=== PATIENT | male | born 1980 | race Caucasian/White ===

== ENCOUNTER 2021-04-10 18:13 | Inpatient (IN) ==
[2021-04-10] MEDS ORDERED: MULTI-VITAMIN INFUSION 10 ML, THIAMINE HCL 100 MG, FOLIC ACID 1 MG in SODIUM CHLORIDE 0... IV ONE (18:23)
[2021-04-10] MEDS ORDERED: SODIUM CHLORIDE 0.9% 500 ML IV SCH (18:30)
[2021-04-10 18:57] LABS: Basophils # (auto) 0.02 K/uL (0-0.2); Basophils % (auto) 0.2 %; Eosinophils # (auto) 0.03 K/uL (0-0.5); Eosinophils % (auto) 0.4 %; Hematocrit (blood only) 43.5 % (42-52); Hemoglobin 14.9 g/dL (14.0-18.0); Immature Granulocytes # (auto) 0.01 K/uL (0.00-0.02); Immature Granulocytes % (auto) 0.1 %; Lymphocytes # (auto) 2.74 K/uL (1.2-3.4); Lymphocytes % (auto) 33.7 %; Mean Corpuscular Hemoglobin 31.7 pg (25-34); Mean Corpuscular Hgb Conc 34.3 g/dL (32-36); Mean Corpuscular Volume 92.6 fL (80-100); Mean Platelet Volume 9.3 fL (7.4-10.4); Monocytes # (auto) 0.59 K/uL (0.11-0.59); Monocytes % (auto) 7.3 %; Neutrophils # (auto) 4.74 K/uL (1.4-6.5); Neutrophils % (auto) 58.3 %; Platelet Count 251 K/uL (130-400); RDW Coefficient of Variation 13.7 % (11.5-14.5); RDW Standard Deviation 46.5 fL (36.4-46.3); White Blood Count 8.13 K/uL (4.8-10.8)
--- NOTE | 2021-04-10 19:03 | Emergency Department Note ---
Impression & Plan Alcohol withdrawal, Alcohol abuse, Tachycardia, Anxiety ED Provider Note NAME: KEVIN DUVALL AGE: 40 SEX: M : 1980 ARRIVES VIA: Walk-In INFORMANT: [Patient] ED PROVIDER(S): [Dedrick Grover MD] CHIEF COMPLAINT: Alcohol abuse HISTORY OF PRESENT ILLNESS: The patient is a 40-year-old male who presents to the ED with concerns for alcohol withdrawal. The patient has a history 5 years ago of alcohol and opiate withdrawal. He had a seizure. He has been clean of both for the last 5 years but a week ago, began drinking alcohol again. He is using alcohol to cope with his anxiety. He drinks at least a pint of hard liquor a day. He currently feels a bit intoxicated. He presents here because he wants to come off of alcohol and he is concerned he may withdrawal. The patient is not homicidal or suicidal. He does not want to stay on the mental health [facility]. The patient states that he is otherwise healthy. No heart or lung disease. He does take Suboxone regularly as prescribed by his doctors office. He also has a card for medical marijuana. He denies any illicit narcotic use currently. REVIEW OF SYSTEMS: See HPI for pertinent positives and negatives. A total of ten systems were reviewed and were otherwise negative. PMHx/PSHx: See Below SOCIAL HISTORY: See Below. PHYSICAL EXAM: GENERAL: Patient is in mild distress. HEENT: No acute trauma, normocephalic atraumatic, mucous membranes moist, no nasal congestion, no scleral icterus. NECK: No stridor, no adenopathy, no meningismus, trachea is midline. LUNGS: Clear to auscultation bilaterally, no wheeze, no rhonchi, breath sounds equal. HEART: Tachycardic, regular rhythm, no murmurs. ABDOMEN: Soft, nontender, bowel sounds positive, no hernias, no peritonitis. EXTREMITIES: No cyanosis or edema, full range of motion of all the joints without pain or difficulty, no signs for acute trauma. NEUROLOGIC: Oriented x 3, no acute motor or sensory deficits, no focal weakness. Extremity tremor noted. SKIN: No rash, no jaundice, no diaphoresis. DIFFERENTIAL DIAGNOSIS: Alcohol abuse, alcohol withdrawal, anxiety, depression, electrolyte imbalance, anemia, suicidality, dehydration, among others. EMERGENCY DEPARTMENT COURSE/PROCEDURES: Critical Care Note: I have personally spent 39 minutes of critical care time in the direct management of this patient. This includes bedside care, interpretation of diagnostic studies, and testing, discussion with consultants, patient, and family members, and other required patient management activities. This 39 minutes is in excess of all separately billable procedures. MEDICAL DECISION MAKING: There is no leukocytosis or worrisome anemia. There is a normal platelet count. No renal failure or significant electrolyte abnormality in need of emergent correction. There are some elevated liver enzymes consistent with his alcohol abuse. The patient appears to be in a euthyroid state. Urinalysis does not show infection. Aspirin, Tylenol levels were undetectable. Alcohol level was high at 289. Urine tox is pending. Covid testing returned negative. The patient presents tachycardic and a bit agitated. He appeared to be in early alcohol withdrawal. While he was here, he became more agitated and more tremulous. The patient was given IV Ativan and oral Librium. He was given IV saline. The patient received IV saline with multivitamins, thiamine and folate. I do think the patient is in need of a hospital stay. He has a history of seizure secondary to alcohol withdrawal. He is withdrawing now and I do think will do poorly if left to go home. He has consented to a hospital stay. I spoke with the patient and bilingual patient support caseworker. The on-call hospitalist was consulted. Of note, the patient is not homicidal or suicidal. I do not think he needs an emergent psychiatric consult. Past Med/Surg History Medical History (Updated 04/10/21 @ 21:42 by Dedrick Grover MD) Alcohol abuse Opiate addiction Social History Smoking Status: Never smoker Feels Safe at Home: Yes Results & Data (ED) Vital Signs Vital Signs - 24 hr 04/10/21 18:18 04/10/21 20:14 Temperature 36.7 C Temperature Source Temporal Artery Scan Pulse Rate 120 H Pulse Rate [Finger] 108 H Pulse Rhythm [Finger] Regular Pulse Strength [Finger] Normal Respiratory Rate 20 20 Respiratory Effort / Characteristics Non-Labored Respiratory Depth Normal Blood Pressure 164/105 H Blood Pressure [Left Arm] 153/89 H Blood Pressure Mean 124 Blood Pressure Mean [Left Arm] 110 Pulse Oximetry 93 98 Oxygen Delivery Method Room Air Room Air Sepsis Recent Fever Within 48 Hours No Sepsis New/Unexplained Change in Mental Status N/A Sepsis Action Taken by Nursing No Action Required Home Medications Current Medication List: was personally reviewed by me Laboratory Data Attestation: I reviewed the patient's lab results. Result diagrams: 04/10/21 18:46 04/10/21 18:46 Lab Results 04/10/21 04/10/21 04/10/21 Range/Units 18:16 18:40 18:46 WBC 8.13 (4.8-10.8) K/uL RBC 4.70 (4.7-6.1) M/uL Hgb 14.9 (14.0-18.0) g/dL Hct 43.5 (42-52) % MCV 92.6 (80-100) fL MCH 31.7 (25-34) pg MCHC 34.3 (32-36) g/dL RDW Std Deviation 46.5 H (36.4-46.3) fL RDW Coeff of Chay 13.7 (11.5-14.5) % Plt Count 251 (130-400) K/uL MPV 9.3 (7.4-10.4) fL Immature Gran % (Auto) 0.1 % Neut % (Auto) 58.3 % Lymph % (Auto) 33.7 % [place] % (Auto) 7.3 % Eos % (Auto) 0.4 % Baso % (Auto) 0.2 % Neut # (Auto) 4.74 (1.4-6.5) K/uL Lymph # (Auto) 2.74 (1.2-3.4) K/uL [place] # (Auto) 0.59 (0.11-0.59) K/uL Eos # (Auto) 0.03 (0-0.5) K/uL Baso # (Auto) 0.02 (0-0.2) K/uL Immature Gran # (Auto) 0.01 (0.00-0.02) K/uL Sodium (136-145) mmol/L Potassium (3.5-5.1) mmol/L Chloride (98-107) mmol/L Carbon Dioxide (21-32) mmol/L Anion Gap (3-11) BUN (6-23) mg/dl Creatinine (0.6-1.4) mg/dl Est Cr Clr Drug Dosing ml/min Est GFR ( Amer) ml/min Est GFR (Non-Af Amer) ml/min BUN/Creatinine Ratio (10-20) Glucose (70-99(Fasting)) mg/dl Calcium (8.5-10.1) mg/dl Magnesium (1.7-2.4) mg/dl Total Bilirubin (0.2-1.0) mg/dl AST (13-39) U/L ALT (7-52) U/L Alkaline Phosphatase (34-104) U/L Total Protein (6.0-8.3) gm/dl Albumin (3.4-5.0) gm/dl Globulin (2.5-4.0) gm/dl Albumin/Globulin Ratio (0.9-2) TSH 3.489 (0.300-4.500) uIu/ml Urine Color Urine Appearance (Clear) Urine pH (4.5-7.5) Ur Specific [place] (1.000-1.030) Urine Protein (Negative) Urine Glucose (UA) (Negative) Urine Ketones (Negative) Urine Blood (Negative) Urine Nitrite (Negative) Urine Bilirubin (Negative) Urine Urobilinogen (Negative) Ur Leukocyte Esterase (Negative) Salicylates < 3.0 L (3.0-30) mg/dl Acetaminophen < 3 L (10-30) ug/ml Ethyl Alcohol mg/dL (<10.0) mg/dl SARS-CoV-2, RNA, NAAT (NEGATIVE) 04/10/21 04/10/21 04/10/21 Range/Units 18:46 18:46 19:15 WBC (4.8-10.8) K/uL RBC (4.7-6.1) M/uL Hgb (14.0-18.0) g/dL Hct (42-52) % MCV (80-100) fL MCH (25-34) pg MCHC (32-36) g/dL RDW Std Deviation (36.4-46.3) fL RDW Coeff of Chay (11.5-14.5) % Plt Count (130-400) K/uL MPV (7.4-10.4) fL Immature Gran % (Auto) % Neut % (Auto) % Lymph % (Auto) % [place] % (Auto) % Eos % (Auto) % Baso % (Auto) % Neut # (Auto) (1.4-6.5) K/uL Lymph # (Auto) (1.2-3.4) K/uL [place] # (Auto) (0.11-0.59) K/uL Eos # (Auto) (0-0.5) K/uL Baso # (Auto) (0-0.2) K/uL Immature Gran # (Auto) (0.00-0.02) K/uL Sodium 140 (136-145) mmol/L Potassium 3.5 (3.5-5.1) mmol/L Chloride 100 (98-107) mmol/L Carbon Dioxide 25 (21-32) mmol/L Anion Gap 15 H (3-11) BUN 14 (6-23) mg/dl Creatinine 0.71 (0.6-1.4) mg/dl Est Cr Clr Drug Dosing 142.4 ml/min Est GFR ( Amer) 136.0 ml/min Est GFR (Non-Af Amer) 117.4 ml/min BUN/Creatinine Ratio 19.7 (10-20) Glucose 115 H (70-99(Fasting)) mg/dl Calcium 9.1 (8.5-10.1) mg/dl Magnesium 2.1 (1.7-2.4) mg/dl Total Bilirubin 0.4 (0.2-1.0) mg/dl AST 81 H (13-39) U/L ALT 65 H (7-52) U/L Alkaline Phosphatase 74 (34-104) U/L Total Protein 8.1 (6.0-8.3) gm/dl Albumin 4.9 (3.4-5.0) gm/dl Globulin 3.2 (2.5-4.0) gm/dl Albumin/Globulin Ratio 1.5 (0.9-2) TSH (0.300-4.500) uIu/ml Urine Color Urine Appearance (Clear) Urine pH (4.5-7.5) Ur Specific [place] (1.000-1.030) Urine Protein (Negative) Urine Glucose (UA) (Negative) Urine Ketones (Negative) Urine Blood (Negative) Urine Nitrite (Negative) Urine Bilirubin (Negative) Urine Urobilinogen (Negative) Ur Leukocyte Esterase (Negative) Salicylates (3.0-30) mg/dl Acetaminophen (10-30) ug/ml Ethyl Alcohol mg/dL 289.3 H (<10.0) mg/dl SARS-CoV-2, RNA, NAAT NEGATIVE (NEGATIVE) 04/10/21 Range/Units 20:45 WBC (4.8-10.8) K/uL RBC (4.7-6.1) M/uL Hgb (14.0-18.0) g/dL Hct (42-52) % MCV (80-100) fL MCH (25-34) pg MCHC (32-36) g/dL RDW Std Deviation (36.4-46.3) fL RDW Coeff of Chay (11.5-14.5) % Plt Count (130-400) K/uL MPV (7.4-10.4) fL Immature Gran % (Auto) % Neut % (Auto) % Lymph % (Auto) % [place] % (Auto) % Eos % (Auto) % Baso % (Auto) % Neut # (Auto) (1.4-6.5) K/uL Lymph # (Auto) (1.2-3.4) K/uL [place] # (Auto) (0.11-0.59) K/uL Eos # (Auto) (0-0.5) K/uL Baso # (Auto) (0-0.2) K/uL Immature Gran # (Auto) (0.00-0.02) K/uL Sodium (136-145) mmol/L Potassium (3.5-5.1) mmol/L Chloride (98-107) mmol/L Carbon Dioxide (21-32) mmol/L Anion Gap (3-11) BUN (6-23) mg/dl Creatinine (0.6-1.4) mg/dl Est Cr Clr Drug Dosing ml/min Est GFR ( Amer) ml/min Est GFR (Non-Af Amer) ml/min BUN/Creatinine Ratio (10-20) Glucose (70-99(Fasting)) mg/dl Calcium (8.5-10.1) mg/dl Magnesium (1.7-2.4) mg/dl Total Bilirubin (0.2-1.0) mg/dl AST (13-39) U/L ALT (7-52) U/L Alkaline Phosphatase (34-104) U/L Total Protein (6.0-8.3) gm/dl Albumin (3.4-5.0) gm/dl Globulin (2.5-4.0) gm/dl Albumin/Globulin Ratio (0.9-2) TSH (0.300-4.500) uIu/ml Urine Color Yellow Urine Appearance Clear (Clear) Urine pH 7.0 (4.5-7.5) Ur Specific [place] 1.009 (1.000-1.030) Urine Protein Negative (Negative) Urine Glucose (UA) Negative (Negative) Urine Ketones Negative (Negative) Urine Blood Negative (Negative) Urine Nitrite Negative (Negative) Urine Bilirubin Negative (Negative) Urine Urobilinogen Negative (Negative) Ur Leukocyte Esterase Negative (Negative) Salicylates (3.0-30) mg/dl Acetaminophen (10-30) ug/ml Ethyl Alcohol mg/dL (<10.0) mg/dl SARS-CoV-2, RNA, NAAT (NEGATIVE) Administered Medications Discontinued Medications Chlordiazepoxide HCl (Chlordiazepoxide Hcl 25 Mg Cap) 25 mg PO NOW ONE Stop: 04/10/21 21:11 Last Admin: 04/10/21 21:21 Dose: 25 mg Documented by: [id number] Sodium Chloride (Nss) 500 mls @ 999 mls/hr IV .Q31M EDINSON Stop: 04/10/21 19:00 Last Infusion: 04/10/21 21:01 Dose: 0 mls/hr Documented by: [id number] Admin: 04/10/21 20:11 Dose: 999 mls/hr Documented by: [id number] Multivitamins 10 ml/ Thiamine HCl 100 mg/ Folic Acid 1 mg/Sodium Chloride 1,011.2 mls @ 1,011.2 mls/hr IV .Q1H ONE Stop: 04/10/21 19:22 Last Infusion: 04/10/21 20:22 Dose: 0 mls/hr Documented by: [id number] Admin: 04/10/21 19:22 Dose: 1,011.2 mls/hr Documented by: [id number] Lorazepam (Ativan) 2 mg in 4 mls @ 4 mls/min IV NOW STA Stop: 04/10/21 21:11 Last Admin: 04/10/21 21:22 Dose: 4 mls/min Documented by: [id number] Discharge Plan Visit Data Chief Complaint: Mental Health Evaluation Stated Complaint: ANXIETY, DONIS WITH DRINKING, ED Provider: Dedrick Grover Discharge Problem: Alcohol withdrawal, Alcohol abuse, Tachycardia, Anxiety Patient Disposition: Admitted As Inpatient Condition: Fair Forms Stand Alone Forms: [facility], Suicide Prevention Resources Referrals Referrals: PCP,NO [Primary Care Provider] -
[2021-04-10 19:22] LABS: Albumin Globulin Ratio 1.5 (0.9-2); Albumin Level 4.9 gm/dl (3.4-5.0); BUN Creatinine Ratio 19.7 (10-20); Bilirubin,Total 0.4 mg/dl (0.2-1.0); Calcium 9.1 mg/dl (8.5-10.1); Creatinine Clr Calc Pharmacy 142.4 ml/min; Est GFR (Non-African American) 117.4 ml/min; Globulin 3.2 gm/dl (2.5-4.0); Magnesium 2.1 mg/dl (1.7-2.4); Potassium 3.5 mmol/L (3.5-5.1); Total Protein 8.1 gm/dl (6.0-8.3)
[2021-04-10 19:37] LABS: Acetaminophen < 3 ug/ml (10-30); Salicylate < 3.0 mg/dl (3.0-30)
[2021-04-10] MEDS ORDERED: LORazepam 2 MG/4 ML VIAL IV STA ×2 (21:10→22:25)
[2021-04-10] MEDS ORDERED: chlordiazePOXIDE HCl 25 MG CAP PO ONE ×2 (21:10→22:25)
[2021-04-10 21:19] LABS: Appearance Urine Clear (Clear); Bilirubin Urine Negative (Negative); Blood Urine Negative (Negative); Color Urine Yellow; Glucose Urine UA Negative (Negative); Ketones Urine Negative (Negative); Leukocyte Esterase Urine Negative (Negative); Nitrite Urine Negative (Negative); Protein Urine Negative (Negative); Specific Gravity Urine 1.009 (1.000-1.030); Urobilinogen Urine Negative (Negative)
[2021-04-10 22:14] LABS: Amphetamines+Metham, Urine Neg (Neg); Barbiturates, Urine Neg (Neg); Benzodiazepine, Urine Neg (Neg); Cocaine, Urine Neg (Neg); MDMA (Ecstacy), Urine Neg (Neg); Methadone, Urine Neg (Neg); Opiate, Urine Neg (Neg); Phencyclidine, Urine Neg (Neg)
[2021-04-10] MEDS ORDERED: buPROPion XL 150 MG TABCR PO STA (22:25)
[2021-04-10] MEDS ORDERED: SERTRALINE HCL 100 MG TABLET PO STA (22:25)
[2021-04-10] MEDS ORDERED: chlordiazePOXIDE ALCOHOL WITHDRAWL 50MG PO STA (22:52)
[2021-04-10] MEDS ORDERED: cloNIDine HCL 0.1 MG TAB PO ONE (23:01)
[2021-04-11] MEDS ORDERED: ONDANSETRON INJ 2 MG/ML 2 ML VIAL IV PRN (01:08)
[2021-04-11] MEDS ORDERED: NITROGLYCERIN SL 0.4 MG/TAB TAB SL PRN (01:08)
[2021-04-11] MEDS ORDERED: LORazepam 2 MG/4 ML VIAL IV PRN (01:08)
[2021-04-11] MEDS ORDERED: cloNIDine HCL 0.1 MG TAB PO PRN (01:08)
[2021-04-11] MEDS ORDERED: LORazepam 3 MG/6 ML VIAL IV PRN (01:08)
[2021-04-11] MEDS ORDERED: ATIVAN IV ALCOHOL WITHDRAWL IV PRN (01:08)
[2021-04-11] MEDS: FOLIC ACID 1 MG in SYRINGE 9.8 ML IV SCH ×2 (01:59→08:41)
[2021-04-11] MEDS: THIAMINE HCL 100 MG in SYRINGE 9 ML IV SCH ×2 (02:00→08:41)
[2021-04-11] MEDS: D5W AND 1/2NSS 1,000 ML IV SCH ×2 (02:27→14:22)
[2021-04-11] MEDS: chlordiazePOXIDE HCl 25 MG CAP PO SCH ×4 (03:55→22:05)
[2021-04-11 04:57] LABS: Basophils # (auto) 0.01 K/uL (0-0.2); Basophils % (auto) 0.2 %; Eosinophils # (auto) 0.07 K/uL (0-0.5); Eosinophils % (auto) 1.6 %; Hematocrit (blood only) 36.8 % (42-52); Hemoglobin 12.2 g/dL (14.0-18.0); Immature Granulocytes # (auto) 0.01 K/uL (0.00-0.02); Immature Granulocytes % (auto) 0.2 %; Lymphocytes # (auto) 1.89 K/uL (1.2-3.4); Lymphocytes % (auto) 42.3 %; Mean Corpuscular Hgb Conc 33.2 g/dL (32-36); Mean Corpuscular Volume 93.4 fL (80-100); Mean Platelet Volume 8.9 fL (7.4-10.4); Monocytes % (auto) 11.2 %; Neutrophils # (auto) 1.99 K/uL (1.4-6.5); Neutrophils % (auto) 44.5 %; Platelet Count 150 K/uL (130-400); RDW Coefficient of Variation 13.7 % (11.5-14.5); RDW Standard Deviation 46.9 fL (36.4-46.3); Red Blood Count 3.94 M/uL (4.7-6.1); White Blood Count 4.47 K/uL (4.8-10.8)
[2021-04-11 05:38] LABS: Albumin Level 3.8 gm/dl (3.4-5.0); BUN Creatinine Ratio 19.3 (10-20); Bilirubin Direct 0.2 mg/dl (0-0.2); Bilirubin,Total 0.6 mg/dl (0.2-1.0); Calcium 7.9 mg/dl (8.5-10.1); Creatinine Clr Calc Pharmacy 177.3 ml/min; Est GFR (African American) 148.9 ml/min; Est GFR (Non-African American) 128.4 ml/min; Magnesium 1.7 mg/dl (1.7-2.4); Potassium 3.3 mmol/L (3.5-5.1)
--- NOTE | 2021-04-11 06:59 | History and Physical Report ---
DATE OF ADMISSION: 04/10/2021. CHIEF COMPLAINT: Alcohol withdrawal. HISTORY OF PRESENT ILLNESS: This is a 40-year-old male with history of alcohol and opioid abuse in the past, history of depression. The patient says he was in the rehab about 5-6 years ago. At that time, he also had withdrawal seizure , not sure from alcohol or from opioid withdrawal, and he was clean of alcohol and opioids for the last 5 years, but about a couple of weeks ago, he got anxious and stress and he started drinking again. He was drinking a pint of alcohol every 2 days and he wants to go back to his normal again, so he came to the hospital for help with withdrawal. He is shaky. Denies any other complaints. He has some headache. No blurred visions, no earache, no runny nose, no sore throat. Has some mild cough. No chest pain, no shortness of breath, no nausea. He has some heartburn. Normal bowel and bladder movements. ALLERGIES: KEFLEX. PAST MEDICAL HISTORY: As mentioned above. PAST SURGICAL HISTORY: Unknown. FAMILY HISTORY: Currently unknown. SOCIAL HISTORY: Drinks alcohol. REVIEW OF SYSTEMS: As per HPI. Rest of the review of systems is negative. PHYSICAL EXAMINATION: GENERAL: The patient is of moderate built, not in acute distress. VITAL SIGNS: Temperature 36.7, pulse 123, blood pressure 143/93, respiratory rate 22, oxygen 93% on room air. HEENT: Pupils equal, round and reactive to light. Oral mucosa moist. NECK: No JVD, no neck masses. CARDIOVASCULAR: S1 and S2 heard. Tachycardia. No murmurs. RESPIRATORY SYSTEM: Normal AP diameter. No accessory muscle use. No wheezing, no crackles. ABDOMEN: Soft, bowel sounds present, nontender, no distention. CENTRAL NERVOUS SYSTEM: Cranial nerves II-XII grossly intact, nonfocal. EXTREMITIES: No edema, no erythema. LABORATORY DATA: WBC 8.1, hemoglobin 14.9, hematocrit 43.5, platelets 251. Sodium 140, potassium 3.5, chloride 100, bicarbonate 25, BUN 14, creatinine 0.7, serum glucose 115, calcium 9.1, magnesium 2.1, total bilirubin 0.4, AST 81, ALT 65, alkaline phosphatase 74. TSH 3.4. Urinalysis is negative. Salicylate less than 3, acetaminophen less than 3, ethyl alcohol 293. Rest of the urine drug screen is negative. SARS-CoV-2 negative. ASSESSMENT AND PLAN: This is a 40-year-old male who presents with alcohol withdrawal. 1. Alcoholism, alcohol withdrawal: The patient has history of alcohol and opioid addiction in the past and was in rehabilitation. In the last 5 years, he was free of drinking alcohol, but for the last 2 weeks, he started drinking and now wants to get over the withdrawal. Received a banana bag in the Emergency Room. I will place him on IV Ativan p.r.n. and Librium protocol. Closely monitor. Clonidine p.r.n. for tachycardia. Gentle fluids.IV thiamine and folic acid. Follow the laboratories. 2. History of depression: Continue his home medications. 3. Chronic pain, history of opioid abuse: Continue Suboxone. 4. Deep venous thrombosis prophylaxis: Lovenox. DISPOSITION: Closely monitor in tele floor. Level 1 full code. Expect to discharge home and follow up with family doctor. Job ID: [id number] [facility]ENTERLeah
[2021-04-11] MEDS ORDERED: POTASSIUM CHLORIDE CRTAB 20 MEQ TABCR PO SCH (07:15)
[2021-04-11] MEDS: ENOXAPARIN INJ 40 MG/0.4 ML SYR SQ SCH (08:41)
[2021-04-11] MEDS: LORazepam 1 MG/2 ML VIAL IV PRN ×4 (08:42→20:17)
--- NOTE | 2021-04-11 13:06 | Hospitalist Progress Note ---
Date of Service April 11, 2021 Assessment & Plan (1) Alcohol withdrawal: (2) Alcohol abuse: (3) Anxiety: Plan: Patient reports he had been sober for over 5yrs and relapsed few weeks ago due to stress at home Last drink was yesterday Currently on management for alcohol withdrawwal per [facility] protocol Continue welbutrin Patient will like to see a psychiatrist as well May have adjustment issues due to major family stressor. Will need outpatient alcohol rehab resources on discharge Hypokalemic. Repleted. Monitor Has h/o opioid addiction. Continue suboxone Admission and Anticipated Discharge Date Admission Date: April 10, 2021 Subjective Patient seen and examined. Patient reports tremors, anxiety,"weird dreams" Reported vomiting earlier this morning. Denies auditory, visual or tactile hallucination. Reports he had been going through some issues at home which caused him to relapse. Currently denies nausea, abdominal pain, diarrhea Denies cough, chest pain, shortness of breath, palpitations Denies dysuria, frequency, urgency Denies fevers or chills Physical Exam Constitutional: + well hydrated; no acute distress Eyes: PERRL, conjunctivae normal, anicteric sclerae ENMT: external ear and nose normal, oropharynx normal Respiratory: normal respiratory effort, lungs clear to auscultation Cardiovascular: Rate/Rhythm: regular rate and regular rhythm S1 S2 Gastrointestinal (Abdomen): normal bowel sounds, soft, nontender, no hepatosplenomegaly Musculoskeletal: no cyanosis or clubbing, extremities motor strength 5/5 Neurologic: PERRL, EOMI, accommodation nl, no face palsy, no dysarthria Tremors in outstretched hands Psychiatric: A+Ox3, euthymic affect Results & Data Results & Data ([facility]) Vital Signs (Past 12 Hours) Vital Signs Pulse Pulse Resp BP BP Pulse Ox 04/11/21 11:06 75 18 136/88 98 04/11/21 07:06 83 16 118/70 96 04/11/21 06:00 120/83 04/11/21 05:30 117/78 04/11/21 05:00 85 20 123/78 04/11/21 04:30 88 18 109/77 04/11/21 04:00 91 H 19 118/79 04/11/21 03:56 121/78 04/11/21 03:30 123/75 04/11/21 03:00 121/74 04/11/21 02:30 94 H 18 160/76 H 92 04/11/21 02:00 101 H 20 128/81 94 04/11/21 01:30 99 H 20 130/83 94 Laboratory Results Abnormal lab results 04/10/21 04/10/21 04/10/21 Range/Units 18:40 18:46 18:46 WBC (4.8-10.8) K/uL RBC (4.7-6.1) M/uL Hgb (14.0-18.0) g/dL Hct (42-52) % RDW Std Deviation 46.5 H (36.4-46.3) fL Potassium (3.5-5.1) mmol/L Anion Gap 15 H (3-11) Creatinine (0.6-1.4) mg/dl Glucose 115 H (70-99(Fasting)) mg/dl Calcium (8.5-10.1) mg/dl AST 81 H (13-39) U/L ALT 65 H (7-52) U/L Salicylates < 3.0 L (3.0-30) mg/dl Acetaminophen < 3 L (10-30) ug/ml Ethyl Alcohol mg/dL (<10.0) mg/dl 04/10/21 04/11/21 04/11/21 Range/Units 18:46 04:41 04:41 WBC 4.47 L (4.8-10.8) K/uL RBC 3.94 L (4.7-6.1) M/uL Hgb 12.2 L (14.0-18.0) g/dL Hct 36.8 L (42-52) % RDW Std Deviation 46.9 H (36.4-46.3) fL Potassium 3.3 L (3.5-5.1) mmol/L Anion Gap (3-11) Creatinine 0.57 L (0.6-1.4) mg/dl Glucose (70-99(Fasting)) mg/dl Calcium 7.9 L (8.5-10.1) mg/dl AST 76 H (13-39) U/L ALT 54 H (7-52) U/L Salicylates (3.0-30) mg/dl Acetaminophen (10-30) ug/ml Ethyl Alcohol mg/dL 289.3 H (<10.0) mg/dl (1) Alcohol withdrawal Complication of substance-induced condition: with unspecified complication Qualified Code(s): F10.239 - Alcohol dependence with withdrawal, unspecified
[2021-04-11] MEDS ORDERED: buPROPion XL 150 MG TABCR PO SCH (16:30)
[2021-04-11] MEDS ORDERED: SERTRALINE HCL 100 MG TABLET PO SCH (16:30)
[2021-04-11] MEDS: BUPRENORPHINE/NALOXONE 8/2 MG TAB SL SCH (16:47)
[2021-04-12] MEDS: chlordiazePOXIDE HCl 25 MG CAP PO SCH ×3 (03:43→19:41)
[2021-04-12 06:09] LABS: Alanine Aminotransferase 60 U/L (7-52); Albumin Globulin Ratio 1.6 (0.9-2); Albumin Level 3.8 gm/dl (3.4-5.0); Alkaline Phosphatase 54 U/L (34-104); Anion Gap 7 (3-11); BUN Creatinine Ratio 12.1 (10-20); Bilirubin,Total 0.8 mg/dl (0.2-1.0); Blood Urea Nitrogen 7 mg/dl (6-23); Carbon Dioxide 26 mmol/L (21-32); Chloride 105 mmol/L (98-107); Creatinine Clr Calc Pharmacy 174.3 ml/min; Est GFR (African American) 147.8 ml/min; Est GFR (Non-African American) 127.5 ml/min; Globulin 2.4 gm/dl (2.5-4.0); Glucose 91 mg/dl (70-99(Fasting)); Magnesium 1.9 mg/dl (1.7-2.4); Phosphorus 3.8 mg/dl (2.5-4.9); Sodium 138 mmol/L (136-145); Total Protein 6.2 gm/dl (6.0-8.3)
[2021-04-12 07:56] LABS: Potassium 4.1 mmol/L (3.5-5.1)
[2021-04-12] MEDS: FOLIC ACID 1 MG in SYRINGE 9.8 ML IV SCH (09:08)
[2021-04-12] MEDS: ENOXAPARIN INJ 40 MG/0.4 ML SYR SQ SCH (09:08)
[2021-04-12] MEDS: THIAMINE HCL 100 MG in SYRINGE 9 ML IV SCH (09:08)
[2021-04-12] MEDS: LORazepam 1 MG/2 ML VIAL IV PRN ×4 (09:09→17:35)
--- NOTE | 2021-04-12 10:03 | Psychiatric Consultation ---
Date of Consultation April 12, 2021 Impression / Recommendations Impression This is a 40 yo with a history of depression, anxiety, alcohol use and opioid use in sustained remission on Suboxone admitted medically. Diagnostically consistent with alcohol and opioid use disorder as well as unspecified depression anxiety likely a combination of substance-induced as well as MDD, JACQUE. At this point risk of harm to self and others is slightly increased due to substance use with substance use treatment being the most significant modifiable risk factor to reduce acute and chronic risk. Imminent risk is low given denial of SI and no hx of past attempts. They do not meet criteria for inpatient psychiatric treatment at this time nor does he desire this rather recommendation is for dual diagnosis or residential substance use treatment. They are not interested in residential treatment at this time but he is agreeable to attending AA and outpatient services to help with substance use and potentially medication assisted treatment. -Psychiatric liason will provide resources on local mental health services and substance use services and attempt to set them up with outpatient services ideally dual diagnosis therapy and potential local psychiatric provider if insurance covers any local providers -Encouraged him to establish with a PCP -Patient is not an imminent danger to self or others and does not meet criteria for involuntary psychiatric commitment -Continue AWSS as well as thiamine and folic acid -Switch timing of Wellbutrin XL 150mg to qAM as evening administration can significantly impact sleep and cause insomnia, in future could be increased to 300mg qAM as outpatient -Increase sertraline to 150mg qHS (in future could be further increased to 200mg qd as outpatient if mood symptoms persist after 4-6 weeks at higher dose) -His addiction medicine provider can review acamprosate as an outpatient, he does not want to start that now and is not eligible for naltrexone -Continue suboxone (1) Alcohol use disorder, moderate, dependence: (2) Opioid use disorder, moderate, in sustained remission, on maintenance therapy: (3) JACQUE (generalized anxiety disorder): (4) MDD (major depressive disorder), recurrent episode, mild: see impression above Risk Factors Assessment Male: Yes : Yes Do You Have Access To A Gun?: No Health Problems: No Mental Health Diagnoses: Yes Substance Use Disorders: Yes Previous Attempt: No Hopelessness: No Protective Factors Assessment : Yes Employed: Yes Stable Relationships: Yes Supportive Family: Yes Good Rapport with Provider: Yes Psych History Identifying Data 40 yo man with a PMH of depression, anxiety, alcohol use disorder and opioid use disorder in sustained remission on suboxone admitted medically for alcohol withdrawal. Psychiatry was consulted for recommendations. Chief Complaint "I've been dealing with more anxiety". History of Present Illness Bautista presented to the ED for relapse of alcohol use after approximately 8 years of sustained remission for supervised withdrawal. He began drinking alcohol again in late February 2021 after going out for dinner with friends where other people were drinking and his use escalated from there. He last consumed alcohol on 04/10/21. His cravings are decreasing now that he's in the hospital and he's willing to do AA and outpatient dual diagnosis therapy after medically stabilized. He describes worsening anxiety and some depression (PHQ-9 score of 10 with 0 for Q9) in the context of an ongoing divorce and stress related to his job. He feels his sertraline and Wellbutrin which he's been taking at the same dosages since he left residential substance use treatment 8 years ago are no longer working well. He experiences some sexual side effects but feels these are manageable and he'd rather have better control of his anxiet y. No other side effects. Takes suboxone 8mg daily for sustained remission from opioid use disorder and sees an addiction medicine provider in [place] who prescribes his suboxone and psychiatric medications. He updated his suboxone provider about his relapse of alcohol use. He's never tried MAT for alcohol use. No hx yumiko. No hx past suicide attempts. Fam hx alcohol use disorder. Past Psychiatric History Previous Psych History: see HPI Outpatient Services: Dr. Conroy for addiction medicine Do You Have Access To A Gun?: No Allergies Allergy/AdvReac Type Severity Reaction Status Date / Time cephalexin [From Keflex] Allergy Hives Verified 04/10/21 21:40 Home Medications Medication Instructions Recorded Confirmed Type buprenorphine 8 mg-naloxone 2 mg 1 film SUBLINGUAL DAILY 04/10/21 04/10/21 History sublingual film (Suboxone) bupropion HCl 150 mg 24 hr tablet, 150 mg PO DAILY 04/10/21 04/10/21 History extended release (Wellbutrin XL) sertraline 100 mg tablet 100 mg PO DAILY 04/10/21 04/10/21 History Family History see HPI Substance Abuse History see HPI Personal History Living Arrangements: Home Employment Status: [employer] Employed Beliefs That Will Affect Care: None Patient History Medical History (Updated 04/12/21 @ 11:12 by Prudence Perez MD) Alcohol abuse MDD (major depressive disorder), recurrent episode, mild Opiate addiction Opioid use disorder, moderate, in sustained remission, on maintenance therapy Social History Smoking Status: Unknown if ever smoked Hx Alcohol Use: Yes Hx Substance Use: No Preferred Language: Citizen Of [place] Communication Ability: Effective 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 Beliefs That Will Affect Care: None Current Living Situation: Alone Feels Safe at Home: Yes Safety Concerns: Feels Safe At This Time Physical Exam Psychiatric: Orientation: alert Apperance: appropriately dressed and appropriately groomed Eye Contact: good eye contact Motor Behavior: no abnormal motor movements Speech: normal rate/rhythm/volume of speech Affect: + anxious affect Mood: + depressed mood and + anxious mood Thought Process: goal directed thought process Thought Content: reality based without delusions Suicidal Thoughts: denies suicidal thoughts Homicidal Thoughts: denies homicidal thoughts Hallucinations: no auditory hallucinations and no visual hallucinations Cognition: recent memory grossly intact, remote memory grossly intact, attention grossly intact and language grossly intact Estimated Intelligence: consistent with education level Insight: + fair insight Judgement: + fair judgement Vital Signs (Past 24 Hours): Last Vital Signs Temp 36.3 C L 04/12/21 03:56 Pulse 66 04/12/21 03:56 Resp 14 04/12/21 03:56 BP 140/102 H 04/12/21 03:56 Pulse Ox 97 04/12/21 03:56 Review of Systems All systems reviewed & are unremarkable except as noted in HPI & below (endorses shakiness/anxiety) Results & Data (PSY) Laboratory Results Na+ is normal, elevated AST/ALT, BUN/CR nml; UDS reviewed Diagnostic Findings no recent EKG Medications Administered Buprenorphine/Naloxone (Buprenorphine/Naloxone 8/2 Mg Tab) 1 tab SL QDD EDINSON Stop: 05/11/21 16:29 Last Admin: 04/11/21 16:47 Dose: 1 tab Documented by: [id number] Bupropion HCl (Bupropion Xl 150 Mg Tabcr) 150 mg PO QDD EDINSON Stop: 05/11/21 16:29 Last Admin: 04/11/21 16:47 Dose: 150 mg Documented by: [id number] Chlordiazepoxide HCl (Chlordiazepoxide Hcl 25 Mg Cap) 50 mg PO Q8H EDINSON; Taper Stop: 04/14/21 03:59 Last Admin: 04/12/21 03:43 Dose: 50 mg Documented by: [id number] Admin: 04/11/21 22:05 Dose: 50 mg Documented by: [id number] Admin: 04/11/21 16:47 Dose: 50 mg Documented by: [id number] Admin: 04/11/21 08:41 Dose: 50 mg Documented by: [id number] Admin: 04/11/21 03:55 Dose: 50 mg Documented by: [id number] Enoxaparin Sodium (Enoxaparin Inj 40 Mg/0.4 Ml Syr) 40 mg SQ Q24H EDINSON Stop: 05/11/21 08:59 Last Admin: 04/12/21 09:08 Dose: 40 mg Documented by: [id number] Admin: 04/11/21 08:41 Dose: 40 mg Documented by: [id number] Thiamine HCl 100 mg/ Syringe 10 mls @ 2 mls/min IV QAM EDINSON Stop: 05/11/21 01:06 Last Admin: 04/12/21 09:08 Dose: 2 mls/min Documented by: [id number] Admin: 04/11/21 08:41 Dose: 2 mls/min Documented by: [id number] Admin: 04/11/21 02:00 Dose: 2 mls/min Documented by: [id number] Folic Acid 1 mg/ Syringe 10 mls @ 5 mls/min IV QAM EDINSON Stop: 05/11/21 01:07 Last Admin: 04/12/21 09:08 Dose: 5 mls/min Documented by: [id number] Admin: 04/11/21 08:41 Dose: 5 mls/min Documented by: [id number] Admin: 04/11/21 01:59 Dose: 5 mls/min Documented by: [id number] Lorazepam (Ativan) 1 mg in 2 mls @ 2 mls/min IV UD PRN; Protocol PRN Reason: EtOH Withdrawl AWSS Score 6,7 Stop: 05/11/21 01:07 Last Admin: 04/12/21 09:09 Dose: 2 mls/min Documented by: [id number] Admin: 04/11/21 20:17 Dose: 2 mls/min Documented by: [id number] Admin: 04/11/21 16:00 Dose: 2 mls/min Documented by: [id number] Admin: 04/11/21 12:04 Dose: 2 mls/min Documented by: [id number] Admin: 04/11/21 08:42 Dose: 2 mls/min Documented by: [id number] Sertraline HCl (Sertraline Hcl 100 Mg Tablet) 100 mg PO QDD EDINSON Stop: 05/11/21 16:29 Last Admin: 04/11/21 16:47 Dose: 100 mg Documented by: [id number] Coding Level of Care Code 35995 Inpt Consult Level 3 Diagnoses Alcohol use disorder, moderate, dependence F10.20 Opioid use disorder, moderate, in sustained remission, on maintenance therapy F11.21 JACQUE (generalized anxiety disorder) F41.1 MDD (major depressive disorder), recurrent episode, mild F33.0
[2021-04-12] MEDS: BUPRENORPHINE/NALOXONE 8/2 MG TAB SL SCH (16:43)
[2021-04-12] MEDS: buPROPion XL 150 MG TABCR PO SCH (16:43)
--- NOTE | 2021-04-12 18:55 | Hospitalist Progress Note ---
Date of Service April 12, 2021 Assessment & Plan (1) Alcohol withdrawal: (2) Alcohol abuse: (3) Anxiety: Plan: Patient reports he had been sober for over 5yrs and relapsed few weeks ago due to stress at home Alcohol Abuse disorder: Alcohol level:289 Tox Screen: negative Monitor for withdrawal seizure/fall precautions Continue Alcohol withdrawal protocol with chlordiazepoxide, Ativan PRN Continue thiamine, folic acid Patient interested in outpatient rehab Generalized anxiety disorder Depression Appreciate psychiatry input Switch Wellbutrin to QAM to minimize insomnia Increase sertraline to 150 mg nightly Needs follow-up with psychiatry upon discharge Hypokalemia Replace electrolytes as needed H/O Opioid drug abuse Continue suboxone DVT Px: Lovenox SQ Code Status Full Code Admission and Anticipated Discharge Date Admission Date: April 10, 2021 Subjective Patient is seen and examined at bedside States feeling anxious and reports having tremors Denies any chest pain, shortness of breath, dizziness, nausea, abdominal pain Offers no other complaints Review of Systems Review of Systems: All systems reviewed & are unremarkable except as noted in Subjective Physical Exam Physical Exam: Physical Exam: Vitals signs as noted above General Appearance:Moderately built and nourished, no apparent distress Head: normocephalic, Atraumatic Eyes: normal inspection, EOMI Neck: supple, Trachea midline Respiratory/Chest: Normal breath sounds, CTA, No accessory muscle use Cardiovascular: S1, S2, No murmur Abdomen/GI:Soft, Non tender, Bowel sounds present Extremities/Musculoskeletal:normal inspection, no edema, +Tremor Neurologic/Psych:AAOX3, grossly no focal neurological deficits Skin: normal color, warm Results & Data Results & Data ([facility]) Vital Signs (Past 12 Hours) Vital Signs Temp Pulse Resp BP Pulse Ox 04/12/21 17:31 36.8 C 75 20 133/91 98 04/12/21 15:11 36.7 C 81 20 137/95 97 04/12/21 11:18 37 C 90 18 137/95 97 Laboratory Results [facility] 04/12/21 04/12/21 04:46 06:52 Sodium 138 Potassium TNP 4.1 D Chloride 105 Carbon Dioxide 26 BUN 7 Creatinine 0.58 L Glucose 91 Calcium 9.0 Liver Function 04/12/21 04/12/21 Range/Units 04:46 06:52 Total Bilirubin 0.8 (0.2-1.0) mg/dl AST TNP 86 H ALT 60 H (7-52) U/L Alkaline Phosphatase 54 (34-104) U/L Albumin 3.8 (3.4-5.0) gm/dl (1) Alcohol withdrawal Complication of substance-induced condition: with unspecified complication Qualified Code(s): F10.239 - Alcohol dependence with withdrawal, unspecified
[2021-04-12] MEDS: SERTRALINE HCL 50 MG TABLET PO SCH (19:41)
[2021-04-13] MEDS: chlordiazePOXIDE HCl 25 MG CAP PO SCH ×3 (04:28→20:40)
[2021-04-13] MEDS: FOLIC ACID 1 MG in SYRINGE 9.8 ML IV SCH (08:26)
[2021-04-13] MEDS: THIAMINE HCL 100 MG in SYRINGE 9 ML IV SCH (08:26)
[2021-04-13] MEDS: ENOXAPARIN INJ 40 MG/0.4 ML SYR SQ SCH (08:26)
[2021-04-13] MEDS: LORazepam 1 MG/2 ML VIAL IV PRN (11:32)
[2021-04-13] MEDS: buPROPion XL 150 MG TABCR PO SCH (17:11)
[2021-04-13] MEDS: BUPRENORPHINE/NALOXONE 8/2 MG TAB SL SCH (17:12)
--- NOTE | 2021-04-13 18:03 | Hospitalist Progress Note ---
Date of Service April 13, 2021 Assessment & Plan (1) Alcohol withdrawal: (2) Alcohol abuse: (3) Anxiety: Plan: Patient reports he had been sober for over 5yrs and relapsed few weeks ago due to stress at home Alcohol Abuse disorder: Alcohol level:289 Tox Screen: negative Monitor for withdrawal seizure/fall precautions Continue Alcohol withdrawal protocol with chlordiazepoxide, Ativan PRN Continue thiamine, folic acid Patient interested in outpatient rehab Continue current management Generalized anxiety disorder Depression Appreciate psychiatry input Switch Wellbutrin to QAM to minimize insomnia Increase sertraline to 150 mg nightly Needs follow-up with psychiatry upon discharge Hypertension Likely situational secondary to alcohol withdrawal Clonidine as needed Monitor Hypokalemia Replace electrolytes as needed H/O Opioid drug abuse Continue Suboxone DVT Px: Lovenox SQ Code Status Full Code Admission and Anticipated Discharge Date Admission Date: April 10, 2021 Subjective Patient is seen and examined at bedside He is feeling less anxious today Also reports tremors Offers no other complaints Denies any chest pain, shortness of breath, dizziness, nausea, abdominal pain Review of Systems Review of Systems: All systems reviewed & are unremarkable except as noted in Subjective Physical Exam Physical Exam: Physical Exam: Vitals signs as noted above General Appearance:Moderately built and nourished, no apparent distress Head: normocephalic, Atraumatic Eyes: normal inspection, EOMI Neck: supple, Trachea midline Respiratory/Chest: Normal breath sounds, CTA, No accessory muscle use Cardiovascular: S1, S2, No murmur Abdomen/GI:Soft, Non tender, Bowel sounds present Extremities/Musculoskeletal:normal inspection, no edema, +Tremor Neurologic/Psych:AAOX3, grossly no focal neurological deficits Skin: normal color, warm Results & Data Results & Data ([facility]) Vital Signs (Past 12 Hours) Vital Signs Temp Pulse Resp BP Pulse Ox 04/13/21 17:06 36.8 C 108 H 13 143/110 H 95 04/13/21 12:00 84 18 124/89 97 04/13/21 08:18 75 18 120/88 97 (1) Alcohol withdrawal Complication of substance-induced condition: with unspecified complication Qualified Code(s): F10.239 - Alcohol dependence with withdrawal, unspecified
[2021-04-13] MEDS: SERTRALINE HCL 50 MG TABLET PO SCH (20:39)
[2021-04-14 05:00] LABS: Hematocrit (blood only) 39.4 % (42-52); Mean Corpuscular Hemoglobin 31.6 pg (25-34); Mean Corpuscular Volume 95.9 fL (80-100); Mean Platelet Volume 9.4 fL (7.4-10.4); Platelet Count 154 K/uL (130-400); RDW Coefficient of Variation 13.8 % (11.5-14.5); RDW Standard Deviation 48.1 fL (36.4-46.3); Red Blood Count 4.11 M/uL (4.7-6.1); White Blood Count 3.43 K/uL (4.8-10.8)
[2021-04-14 05:18] LABS: Albumin Globulin Ratio 1.5 (0.9-2); Albumin Level 4.1 gm/dl (3.4-5.0); BUN Creatinine Ratio 28.4 (10-20); Bilirubin,Total 0.5 mg/dl (0.2-1.0); Calcium 9.3 mg/dl (8.5-10.1); Creatinine Clr Calc Pharmacy 136.6 ml/min; Est GFR (African American) 133.7 ml/min; Est GFR (Non-African American) 115.4 ml/min; Globulin 2.8 gm/dl (2.5-4.0); Potassium 4.1 mmol/L (3.5-5.1); Total Protein 6.9 gm/dl (6.0-8.3)
[2021-04-14] MEDS: LORazepam 1 MG/2 ML VIAL IV PRN (09:08)
[2021-04-14] MEDS: ENOXAPARIN INJ 40 MG/0.4 ML SYR SQ SCH (09:11)
[2021-04-14] MEDS: FOLIC ACID 1 MG in SYRINGE 9.8 ML IV SCH (09:11)
[2021-04-14] MEDS: THIAMINE HCL 100 MG in SYRINGE 9 ML IV SCH (09:11)
--- NOTE | 2021-04-14 14:25 | Hospitalist Progress Note ---
Date of Service April 14, 2021 Assessment & Plan (1) Alcohol withdrawal: (2) Alcohol abuse: (3) Anxiety: Plan: Patient reports he had been sober for over 5yrs and relapsed few weeks ago due to stress at home Alcohol Abuse disorder: Alcohol level:289 Tox Screen: negative Monitor for withdrawal seizure/fall precautions Continue Alcohol withdrawal protocol with chlordiazepoxide, Ativan PRN Continue thiamine, folic acid Patient interested in outpatient rehab and refused inpatient rehab Counseled to quit alcohol use Transaminitis Secondary to above Avoid hepatotoxic agents Monitor LFTs We will request to get repeat blood test in 1 week as outpatient Generalized anxiety disorder Depression Appreciate psychiatry input Switched Wellbutrin to QAM to minimize insomnia Increase sertraline to 150 mg nightly Needs follow-up with psychiatry upon discharge Hypertension Likely situational secondary to alcohol withdrawal Clonidine as needed Monitor Hypokalemia Replace electrolytes as needed H/O Opioid drug abuse Continue Suboxone DVT Px: Lovenox SQ Code Status Full Code Admission and Anticipated Discharge Date Admission Date: April 10, 2021 Subjective Patient is seen and examined at bedside States feeling much better today Less anxious Tremors resolved No new complaints Denies any chest pain, shortness of breath, dizziness, nausea, abdominal pain Review of Systems Review of Systems: All systems reviewed & are unremarkable except as noted in Subjective Physical Exam Physical Exam: Physical Exam: Vitals signs as noted above General Appearance:Moderately built and nourished, no apparent distress Head: normocephalic, Atraumatic Eyes: normal inspection, EOMI Neck: supple, Trachea midline Respiratory/Chest: Normal breath sounds, CTA, No accessory muscle use Cardiovascular: S1, S2, No murmur Abdomen/GI:Soft, Non tender, Bowel sounds present Extremities/Musculoskeletal:normal inspection, no edema Neurologic/Psych:AAOX3, grossly no focal neurological deficits Skin: normal color, warm Results & Data Results & Data ([facility]) Vital Signs (Past 12 Hours) Vital Signs Temp Pulse Resp BP BP Pulse Ox 04/14/21 12:44 36.6 C 65 13 143/110 H 112/76 97 04/14/21 12:00 65 13 112/76 97 04/14/21 08:00 36.6 C 82 19 134/110 H 97 04/14/21 04:00 36.8 C 84 18 130/90 98 Laboratory Results Short CBC 04/14/21 Range/Units 04:42 WBC 3.43 L (4.8-10.8) K/uL Hgb 13.0 L (14.0-18.0) g/dL Hct 39.4 L (42-52) % Plt Count 154 (130-400) K/uL BMP 04/14/21 04:42 Sodium 137 Potassium 4.1 Chloride 102 Carbon Dioxide 28 BUN 21 Creatinine 0.74 Glucose 92 Calcium 9.3 Liver Function 04/14/21 Range/Units 04:42 Total Bilirubin 0.5 (0.2-1.0) mg/dl AST 240 H (13-39) U/L ALT 184 H (7-52) U/L Alkaline Phosphatase 64 (34-104) U/L Albumin 4.1 (3.4-5.0) gm/dl (1) Alcohol withdrawal Complication of substance-induced condition: with unspecified complication Qualified Code(s): F10.239 - Alcohol dependence with withdrawal, unspecified
[2021-04-14] MEDS ORDERED: hydrOXYzine HCl 10 MG TAB PO PRN (14:45)
--- NOTE | 2021-04-14 14:50 | Discharge Summary ---
Date of Service April 14, 2021 Admission HPI Per Admitting Provider CHIEF COMPLAINT: Alcohol withdrawal. HISTORY OF PRESENT ILLNESS: This is a 40-year-old male with history of alcohol and opioid abuse in the past, history of depression. The patient says he was in the rehab about 5-6 years ago. At that time, he also had withdrawal seizure , not sure from alcohol or from opioid withdrawal, and he was clean of alcohol and opioids for the last 5 years, but about a couple of weeks ago, he got anxious and stress and he started drinking again. He was drinking a pint of alcohol every 2 days and he wants to go back to his normal again, so he came to the hospital for help with withdrawal. He is shaky. Denies any other complaints. He has some headache. No blurred visions, no earache, no runny nose, no sore throat. Has some mild cough. No chest pain, no shortness of breath, no nausea. He has some heartburn. Normal bowel and bladder movements. Admission Exam Per Admitting Provider PHYSICAL EXAMINATION: GENERAL: The patient is of moderate built, not in acute distress. VITAL SIGNS: Temperature 36.7, pulse 123, blood pressure 143/93, respiratory rate 22, oxygen 93% on room air. HEENT: Pupils equal, round and reactive to light. Oral mucosa moist. NECK: No JVD, no neck masses. CARDIOVASCULAR: S1 and S2 heard. Tachycardia. No murmurs. RESPIRATORY SYSTEM: Normal AP diameter. No accessory muscle use. No wheezing, no crackles. ABDOMEN: Soft, bowel sounds present, nontender, no distention. CENTRAL NERVOUS SYSTEM: Cranial nerves II-XII grossly intact, nonfocal. EXTREMITIES: No edema, no erythema. Principal Diagnosis Alcohol withdrawal Generalized anxiety disorder Depression Discharge Data Allergies Allergy/AdvReac Type Severity Reaction Status Date / Time cephalexin [From Keflex] Allergy Hives Verified 04/10/21 21:40 Consultations 04/10/21 21:10 ED Decision to Admit Stat 04/11/21 13:01 Consult Psychiatry Routine Hospital Course (1) Alcohol withdrawal: (2) Alcohol abuse: (3) Anxiety: Patient reports he had been sober for over 5yrs and relapsed few weeks ago due to stress at home Alcohol Abuse disorder: Alcohol level:289 Tox Screen: negative Monitor for withdrawal seizure/fall precautions Continue Alcohol withdrawal protocol with chlordiazepoxide, Ativan PRN Continue thiamine, folic acid Patient interested in outpatient rehab and refused inpatient rehab Counseled to quit alcohol use Transaminitis Secondary to above Avoid hepatotoxic agents Monitor LFTs We will request to get repeat blood test in 1 week as outpatient Generalized anxiety disorder Depression Appreciate psychiatry input Switched Wellbutrin to QAM to minimize insomnia Increase sertraline to 150 mg nightly Needs follow-up with psychiatry upon discharge Hypertension Likely situational secondary to alcohol withdrawal Clonidine as needed Monitor Hypokalemia Replace electrolytes as needed H/O Opioid drug abuse Continue Suboxone DVT Px: Lovenox SQ Code Status Full Code Total Time Total Time Spent Total Time Spent (In Minutes): 45 minutes Discharge Plan Discharge Items Patient Disposition: Home - Self-Care Reason For Visit: ALCOHOLISM Discharge Diagnosis: Alcohol withdrawal Generalized anxiety disorder Depression Condition on Discharge: Fair Activity: Per Instructions section Exercise/Sports: Wait until after follow-up appointment Non-emergency contact: Primary Care Provider and Psychiatrist Call non-emergency contact if: you have any medication questions, your symptoms worsen, your pain is concerning for you and you have a fever Follow-up/Referrals: [facility] [Other] - 04/19/21 10:00 am (Appointment is via telehealth) Bruna Lemus DO [Outside Practitioners] - (Date & Time 04/18/2021 11:00 AM Provider Bruna Lemus DO [facility] [address] [place] [address], [place] [id number] ) Diet: Heart Healthy Addtl Attending Provider Instructions: Follow-up with your primary care physician Dr. Bruna Lemus on 04/18/2021 11:00 AM : Sheri Walker PA Follow-up with your psychiatrist at [facility] on 04/19/2021 at 10 AM as scheduled ----Quit drinking alcohol as advised. Seek immediate medical attention if your symptoms reoccur or worsen Please take all medications as instructed on discharge list below. Please call if you have any questions or problems. You can reach a Aaron hospitalist on duty at [facility] 24 hours a day by calling [phone] Pending Studies at Discharge: No Stand-Alone Forms: My [facility], Work/School Release, Smoking Cessation Medications and DC Order Prescriptions: New thiamine HCl (vitamin B1) 100 mg Tablet 100 mg PO QAM Qty: 30 RF: 0 folic acid 1 mg Tablet 1 mg PO QAM Qty: 30 RF: 0 hydroxyzine HCl 10 mg Tablet 10 mg PO BID PRN (Reason: anxiety) Qty: 10 RF: 0 sertraline 150 mg capsule 150 mg PO HS Qty: 30 RF: 0 Continued buprenorphine-naloxone [Suboxone] 8-2 mg Film 1 film SUBLINGUAL DAILY RF: 0 Changed bupropion HCl [Wellbutrin XL] 150 mg Tablet Extended Release 24 Hr 150 mg PO QAM Qty: 0 RF: 0 Discontinued sertraline 100 mg Tablet 100 mg PO DAILY RF: 0 Discharge Orders: Discharge Order (Routine); Ordered 04/14/21 Ordered By: Melvin Sheppard Admission Data Admit Date/Time: 04/10/21 22:52 Attending Provider: Melvin Sheppard Admit Provider: Shailesh Wan Primary Care Provider: PCP,NO Other Providers: Shailesh Wan ; Prudence Perez ; Yudy Braga ; Paula Ge ; Ata Simms
[2021-04-15] MEDS ORDERED: THIAMINE HCL 100 MG TAB PO SCH (09:00)
[2021-04-15] MEDS ORDERED: FOLIC ACID 1 MG TAB PO SCH (09:00)
== END 2021-04-14 16:11 | disposition home or self-care (01) | DRG 897 ==
LOC: ED 18:13 → SUATTDRO 22:52 → EDINP 22:52
DX: F10.239 Alcohol dependence with withdrawal, unspecified; E87.6 Hypokalemia; Z88.1 Allergy status to other antibiotic agents; Y90.8 Blood alcohol level of 240 mg/100 ml or more; Z20.822 Contact with and (suspected) exposure to COVID-19; Z81.1 Family history of alcohol abuse and dependence; Z63.5 Disruption of family by separation and divorce; F33.0 Major depressive disorder, recurrent, mild; G89.29 Other chronic pain; F11.21 Opioid dependence, in remission; Z56.9 Unspecified problems related to employment; F41.1 Generalized anxiety disorder; Z79.899 Other long term (current) drug therapy; F11.288 Opioid dependence with other opioid-induced disorder; R74.01 Elevation of levels of liver transaminase levels; R03.0 Elevated blood-pressure reading, without diagnosis of hypertension

== ENCOUNTER 2021-05-08 18:54 | Inpatient (IN) ==
[2021-05-08] MEDS ORDERED: chlordiazePOXIDE HCl 25 MG CAP PO ONE (20:31)
[2021-05-08] MEDS ORDERED: LORazepam 2 MG/1 ML VIAL IV PRN ×4 (20:31)
[2021-05-08] MEDS ORDERED: LORazepam 2 MG/1 ML VIAL IV STA (20:31)
[2021-05-08] MEDS ORDERED: ATIVAN IV ALCOHOL WITHDRAWL IV PRN (20:31)
[2021-05-08] MEDS ORDERED: chlordiazePOXIDE ALCOHOL WITHDRAWL 50MG PO STA ×2 (20:31→22:58)
[2021-05-08] MEDS ORDERED: MULTI-VITAMIN INFUSION 10 ML, THIAMINE HCL 100 MG, FOLIC ACID 1 MG in SODIUM CHLORIDE 0... IV ONE (20:32)
[2021-05-08 21:12] LABS: Basophils # (auto) 0.02 K/uL (0-0.2); Basophils % (auto) 0.3 %; Eosinophils # (auto) 0.05 K/uL (0-0.5); Eosinophils % (auto) 0.6 %; Hematocrit (blood only) 42.5 % (42-52); Hemoglobin 14.6 g/dL (14.0-18.0); Immature Granulocytes # (auto) 0.04 K/uL (0.00-0.02); Immature Granulocytes % (auto) 0.5 %; Lymphocytes % (auto) 29.2 %; Mean Corpuscular Hgb Conc 34.4 g/dL (32-36); Mean Corpuscular Volume 93.2 fL (80-100); Mean Platelet Volume 9.5 fL (7.4-10.4); Monocytes # (auto) 0.86 K/uL (0.11-0.59); Monocytes % (auto) 10.9 %; Neutrophils # (auto) 4.62 K/uL (1.4-6.5); Neutrophils % (auto) 58.5 %; Platelet Count 195 K/uL (130-400); RDW Coefficient of Variation 13.4 % (11.5-14.5); RDW Standard Deviation 45.7 fL (36.4-46.3); Red Blood Count 4.56 M/uL (4.7-6.1); White Blood Count 7.89 K/uL (4.8-10.8)
[2021-05-08 21:30] LABS: Albumin Globulin Ratio 1.7 (0.9-2); Albumin Level 4.9 gm/dl (3.4-5.0); BUN Creatinine Ratio 15.3 (10-20); Bilirubin,Total 0.4 mg/dl (0.2-1.0); Calcium 10.1 mg/dl (8.5-10.1); Creatinine Clr Calc Pharmacy 140.7 ml/min; Est GFR (African American) 134.3 ml/min; Est GFR (Non-African American) 115.9 ml/min; Globulin 2.9 gm/dl (2.5-4.0); Magnesium 2.2 mg/dl (1.7-2.4); Potassium 3.7 mmol/L (3.5-5.1); Total Protein 7.8 gm/dl (6.0-8.3)
--- NOTE | 2021-05-08 21:56 | Emergency Department Note ---
Impression & Plan Alcohol withdrawal, Alcohol abuse, Tachycardia ED Provider Note NAME: KEVIN DUVALL AGE: 41 SEX: M : 1980 ARRIVES VIA: Walk-In INFORMANT: Patient, ED PROVIDER(S): Onur Larry MD Chief Complaint: Alcohol abuse, detox HPI: Patient presents with known history of alcohol abuse and is requesting detox. The patient states that he last had a drink approximate 1 hour prior to arrival and had 11 white claws today. The patient does have a known history of alcohol abuse in the past but have been clinically sober for some time until he relapsed approximately 6 months prior. The patient is going through divorce. The patient denies any fevers chills chest pain shortness of breath nausea or vomiting. Patient has had some looser stools of late but is having regular bowel movements. The patient denies any issues with urination. Patient is vaccinated for COVID. The patient does take Suboxone for known history of opiate abuse and addiction in the past. Patient did have a recent admission where he was clinically sober he was discharged and did have outpatient follow- up but he states that he telehealth referral did not work as the telehealth provider never showed up to his virtual appointment and thus the patient resumed drinking. Patient does present with his father at bedside. No reported falls or trauma. ROS: See HPI for pertinent positives and negatives. A total of 10 systems were r eviewed and otherwise negative. Past medical history: See below Surgical history: See below Social history: See below Physical Exam: GENERAL: Anxious in appearance, wearing a mask. EYE EXAM: Normal conjunctiva. PERRL, no anisocoria and EOM's grossly intact w/o pain. OROPHARYNX: Moist mucus membranes. Grossly normal dentition. No exudate, posterior pharynx is clear, no tonsillar/uvular deviation or swelling. No cervical adenopathy, no submental, submandibular, or sublingual swelling. NECK: Supple, no nuchal rigidity, no adenopathy, non-tender. No signs of meningismus. FROM of the neck with good chin to chest and neck extension. No stridor. LUNGS: Clear to auscultation. Normal chest wall mechanics. HEART: Tachycardic and regular, no MRG. ABDOMEN: Abdomen soft, non-tender, normo-active bowel sounds, no masses, no rebound or guarding. BACK: No CVA TTP. SKIN: No rashes and no bruising. UPPER EXTREMITIES: Bilateral upper extremity tremors noted. LOWER EXTREMITIES: Grossly normal, no edema. NEURO EXAM: A&O x3, cranial nerves II-XII grossly intact, dysarthric, moves all 4 extremities on command w/o issue. Differential diagnoses: Alcohol intoxication, toxicologic, infection, hypog lycemia, electrolyte abnormalities, cardiac sources, intracerebral event, neurologic, trauma, as well as other pathologies. Course: Patient was seen and evaluated the bedside. Full history physical exam was performed. EKG interpreted by me Normal sinus rhythm, rate of 95, normal intervals, normal axis, T wave inversion in lead III, no obvious ST changes. Imaging Studies: See Below Cardiac monitoring: An order was placed for continuous cardiac monitoring. The monitor shows a rate of 115 with tachycardic and regular rhythm. MDM: Patient presented for detox referral. The patient may have an element of withdrawal as the patient does seem mildly anxious and does have some some murmurs in his upper extremities. The patient was ordered p.o. Librium as a loading dose in addition to IV Ativan. CIWA protocol initiated. Blood work obtained along with alcohol and Covid swab. Patient has normal white count H&H and platelet count. The patient's kidney function is unremarkable. The patient does have mild transaminitis but normal bilirubin. This is likely secondary to the patient's drinking. Alcohol today 240. Covid negative. Hospitalist Dr. Wan and the patient was admitted to the medicine service. Patient does have dysarthric speech but likely secondary to the patient's alcohol use. No obvious focal deficits on exam. Critical Care: I have personally spent 42 minutes of critical care time in direct management of this patient. This includes bedside care, interpretation of diagnostic studies, and testing, discussion with consultants, patient, and family members, and other require inpatient management activities. This 42 minutes is in excess of all separately billable procedures. 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 Beliefs That Will Affect Care: None marital status: Current Living Situation: Alone Feels Safe at Home: Yes Assistive Devices: None Immunizations: Vaccinated for COVID-19 Allergies Allergies Allergy/AdvReac Type Severity Reaction Status Date / Time cephalexin [From Keflex] Allergy Hives Verified 05/08/21 21:13 Home Meds Home Medications Medication Instructions Recorded Confirmed buprenorphine 8 mg-naloxone 2 mg 1 film SUBLINGUAL DAILY 04/10/21 05/08/21 sublingual film (Suboxone) bupropion HCl 150 mg 24 hr tablet, 150 mg PO HS 05/08/21 05/08/21 extended release (Wellbutrin XL) sertraline 150 mg capsule 150 mg PO QAM 05/08/21 05/08/21 Results & Data (ED) Vital Signs Vital Signs - 24 hr 05/08/21 18:57 05/08/21 20:18 05/08/21 20:19 Temperature 36.8 C Temperature Source Temporal Artery Scan Pulse Rate 126 H Pulse Rate [Right Finger] 119 H Pulse Rhythm [Right Finger] Regular Respiratory Rate 18 19 Respiratory Effort / Characteristics Non-Labored Non-Labored Respiratory Depth Normal Respiratory Pattern Regular Blood Pressure 147/99 H Blood Pressure [Left Arm] 169/136 H Blood Pressure Mean 115 Blood Pressure Mean [Left Arm] 147 Pulse Oximetry 92 94 94 Oxygen Delivery Method Room Air Room Air Room Air Oxygen Flow Rate 0 Sepsis Recent Fever Within 48 Hours No Sepsis New/Unexplained Change in Mental Status No Sepsis Action Taken by Nursing No Action Required 05/08/21 21:18 Temperature Temperature Source Pulse Rate Pulse Rate [Right Finger] Pulse Rhythm [Right Finger] Respiratory Rate Respiratory Effort / Characteristics Respiratory Depth Respiratory Pattern Blood Pressure Blood Pressure [Left Arm] Blood Pressure Mean Blood Pressure Mean [Left Arm] Pulse Oximetry 94 Oxygen Delivery Method Room Air Oxygen Flow Rate Sepsis Recent Fever Within 48 Hours Sepsis New/Unexplained Change in Mental Status Sepsis Action Taken by Long Term Medications Current Medication List: was personally reviewed by me Laboratory Data Attestation: I reviewed the patient's lab results. Result diagrams: 05/08/21 20:43 05/08/21 20:43 Lab Results 05/08/21 05/08/21 05/08/21 Range/Units 20:17 20:43 20:43 WBC 7.89 (4.8-10.8) K/uL RBC 4.56 L (4.7-6.1) M/uL Hgb 14.6 (14.0-18.0) g/dL Hct 42.5 (42-52) % MCV 93.2 (80-100) fL MCH 32.0 (25-34) pg MCHC 34.4 (32-36) g/dL RDW Std Deviation 45.7 (36.4-46.3) fL RDW Coeff of Chay 13.4 (11.5-14.5) % Plt Count 195 (130-400) K/uL MPV 9.5 (7.4-10.4) fL Immature Gran % (Auto) 0.5 % Neut % (Auto) 58.5 % Lymph % (Auto) 29.2 % [place] % (Auto) 10.9 % Eos % (Auto) 0.6 % Baso % (Auto) 0.3 % Neut # (Auto) 4.62 (1.4-6.5) K/uL Lymph # (Auto) 2.30 (1.2-3.4) K/uL [place] # (Auto) 0.86 H (0.11-0.59) K/uL Eos # (Auto) 0.05 (0-0.5) K/uL Baso # (Auto) 0.02 (0-0.2) K/uL Immature Gran # (Auto) 0.04 H (0.00-0.02) K/uL Sodium 137 (136-145) mmol/L Potassium 3.7 (3.5-5.1) mmol/L Chloride 101 (98-107) mmol/L Carbon Dioxide 26 (21-32) mmol/L Anion Gap 10 (3-11) BUN 11 (6-23) mg/dl Creatinine 0.72 (0.6-1.4) mg/dl Est Cr Clr Drug Dosing 140.7 ml/min Est GFR ( Amer) 134.3 ml/min Est GFR (Non-Af Amer) 115.9 ml/min BUN/Creatinine Ratio 15.3 (10-20) Glucose 83 (70-99(Fasting)) mg/dl Calcium 10.1 (8.5-10.1) mg/dl Magnesium 2.2 (1.7-2.4) mg/dl Total Bilirubin 0.4 (0.2-1.0) mg/dl AST 84 H (13-39) U/L ALT 100 H (7-52) U/L Alkaline Phosphatase 75 (34-104) U/L Total Protein 7.8 (6.0-8.3) gm/dl Albumin 4.9 (3.4-5.0) gm/dl Globulin 2.9 (2.5-4.0) gm/dl Albumin/Globulin Ratio 1.7 (0.9-2) TSH (0.300-4.500) uIu/ml Ethyl Alcohol mg/dL (<10.0) mg/dl SARS-CoV-2, RNA, NAAT NEGATIVE (NEGATIVE) 05/08/21 05/08/21 Range/Units 20:43 20:43 WBC (4.8-10.8) K/uL RBC (4.7-6.1) M/uL Hgb (14.0-18.0) g/dL Hct (42-52) % MCV (80-100) fL MCH (25-34) pg MCHC (32-36) g/dL RDW Std Deviation (36.4-46.3) fL RDW Coeff of Chay (11.5-14.5) % Plt Count (130-400) K/uL MPV (7.4-10.4) fL Immature Gran % (Auto) % Neut % (Auto) % Lymph % (Auto) % [place] % (Auto) % Eos % (Auto) % Baso % (Auto) % Neut # (Auto) (1.4-6.5) K/uL Lymph # (Auto) (1.2-3.4) K/uL [place] # (Auto) (0.11-0.59) K/uL Eos # (Auto) (0-0.5) K/uL Baso # (Auto) (0-0.2) K/uL Immature Gran # (Auto) (0.00-0.02) K/uL Sodium (136-145) mmol/L Potassium (3.5-5.1) mmol/L Chloride (98-107) mmol/L Carbon Dioxide (21-32) mmol/L Anion Gap (3-11) BUN (6-23) mg/dl Creatinine (0.6-1.4) mg/dl Est Cr Clr Drug Dosing ml/min Est GFR ( Amer) ml/min Est GFR (Non-Af Amer) ml/min BUN/Creatinine Ratio (10-20) Glucose (70-99(Fasting)) mg/dl Calcium (8.5-10.1) mg/dl Magnesium (1.7-2.4) mg/dl Total Bilirubin (0.2-1.0) mg/dl AST (13-39) U/L ALT (7-52) U/L Alkaline Phosphatase (34-104) U/L Total Protein (6.0-8.3) gm/dl Albumin (3.4-5.0) gm/dl Globulin (2.5-4.0) gm/dl Albumin/Globulin Ratio (0.9-2) TSH 3.285 (0.300-4.500) uIu/ml Ethyl Alcohol mg/dL 240.5 H (<10.0) mg/dl SARS-CoV-2, RNA, NAAT (NEGATIVE) Administered Medications Discontinued Medications Chlordiazepoxide HCl (Chlordiazepoxide Hcl 25 Mg Cap) 100 mg PO NOW ONE Stop: 05/08/21 20:32 Last Admin: 05/08/21 20:48 Dose: 100 mg Documented by: [id number] Multivitamins 10 ml/ Thiamine HCl 100 mg/ Folic Acid 1 mg/Sodium Chloride 1,011.2 mls @ 1,011.2 mls/hr IV .Q1H ONE Stop: 05/08/21 21:31 Last Admin: 05/08/21 21:33 Dose: 1,011.2 mls/hr Documented by: [id number] Lorazepam (Lorazepam 2 Mg/1 Ml Vial) 1 mg IV NOW STA Stop: 05/08/21 20:32 Last Admin: 05/08/21 20:49 Dose: 1 mg Documented by: [id number] Discharge Plan Visit Data Chief Complaint: Detox Request Stated Complaint: ALCOHOL DETOX ED Provider: Onur Larry Discharge Problem: Alcohol withdrawal, Alcohol abuse, Tachycardia Patient Disposition: Admitted As Inpatient Forms Stand Alone Forms: [facility], Suicide Prevention Resources Prescriptions Prescriptions: No Action buprenorphine-naloxone [Suboxone] 8-2 mg Film 1 film SUBLINGUAL DAILY RF: 0 bupropion HCl [Wellbutrin XL] 150 mg tablet extended release 24 hr 150 mg PO HS RF: 0 sertraline 150 mg capsule 150 mg PO QAM RF: 0 Referrals Referrals: Bruna Lemus DO [Primary Care Provider] -
[2021-05-08] MEDS: chlordiazePOXIDE HCl 25 MG CAP PO SCH (22:46)
--- NOTE | 2021-05-09 00:51 | History and Physical Report ---
DATE OF ADMISSION: 05/08/2021. CHIEF COMPLAINT: Alcoholism. HISTORY OF PRESENT ILLNESS: A 41-year-old male with past medical history significant for history of opioid dependence, in remission, currently on Suboxone; alcoholism; anxiety. The patient was recently in the hospital for alcoholism, got discharged. His sertraline dose was increased to 150 mg and he is on hydroxyzine p.r.n., thiamine and folic acid. Comes back because of alcoholism. The patient says after going home, he is supposed to follow with psychiatry, but on the [facility], doctor was not able to come. He states he is drinking about 8 to 10 beers every day and his alcohol level was 240. He states he is living in a recreation house, there are always some people in the house. He seems somewhat confused but answering simple questions.Denies any chest pain. No shortness of breath, no cough, no fever, no headache, no nausea, no vomiting, no abdominal pain. Normal bowel and bladder movements. He was slightly tachycardic when he came in. With medications, currently his heart rates is under control. Hemodynamically stable. ALLERGIES: KEFLEX. PAST MEDICAL HISTORY: As mentioned above. PAST SURGICAL HISTORY: Anesthesia for arthroscopy of the left hip. MEDICATIONS: The patient is on Suboxone sublingual daily, Wellbutrin XL 150 mg p.o. at bedtime, sertraline 150 mg p.o. a.m. FAMILY HISTORY: Significant for father has obesity, kidney cancer, status post nephrectomy, hypertension; son has ADHD; father also has diabetes; mother has osteoporosis; paternal grandfather has stroke; maternal grandmother has Alzheimer's disease. SOCIAL HISTORY: History of alcoholism, history of opioid in remission. REVIEW OF SYSTEMS: Could not get complete review of systems as the patient is somewhat confused. PHYSICAL EXAMINATION: GENERAL: The patient is of moderate build, not in acute distress. VITAL SIGNS: Temperature 36.8, pulse 94, respiratory 24, blood pressure 134/78, oxygen 95% on room air. HEENT: Pupils equal, round, and reactive to light. Oral mucosa moist. NECK: No JVD, no neck masses. CARDIOVASCULAR: S1 and S2 heard, tachycardia. No murmurs. RESPIRATORY SYSTEM: Normal AP diameter. No accessory muscle use. No wheezing, no crackles. ABDOMEN: Soft, bowel sounds present, nontender, no distention. CENTRAL NERVOUS SYSTEM: Cranial nerves II through XII are grossly intact. Alert, awake, and oriented to name. Knows he is in the hospital, but thinks it is [facility]. Could not tell the current date. Could tell his date of . Obeys simple commands. Moves extremities. EXTREMITIES: No edema, no erythema. LABORATORY DATA: WBC 7.8, hemoglobin 14.6, hematocrit 42.1, platelets 195. Sodium 137, potassium 3.7, chloride 101, bicarbonate 26, BUN 11, creatinine 0.7, serum glucose 83, calcium 10.1, magnesium 2.2, total bilirubin 0.4, AST 84, ALT 100, alkaline phosphatase 75, TSH 3.2. Alcohol 240. SARS-CoV-2 negative. EKG: Normal sinus rhythm with sinus arrhythmia at a rate of 95, no previous ECGs available. ASSESSMENT AND PLAN: This is a 41-year-old male who presents with alcoholism. 1. Alcoholism: History of alcohol withdrawal in the past. Placed on Librium protocol with IV Ativan prn. Received banana bag in the ER. Will place him on IV thiamine and IV folic acid. The patient was requesting detox request. Social service to help with discharge planning. 2. History of opioid dependence, in remission: Continue Suboxone. 3. History of depression and anxiety: Continue Wellbutrin and sertraline. 4. Deep venous thrombosis prophylaxis: Will place him on sequential compression devices and Lovenox and watch the platelets. If the platelets drop, we may need to stop the Lovenox. DISPOSITION: Admit to tele floor. Level 1 full code. Expect to discharge home and follow with family doctor. Job ID: [id number] [facility]
[2021-05-09] MEDS: chlordiazePOXIDE HCl 25 MG CAP PO SCH ×4 (02:35→21:24)
[2021-05-09] MEDS ORDERED: NITROGLYCERIN SL 0.4 MG/TAB TAB SL PRN (03:00)
[2021-05-09] MEDS ORDERED: chlordiazePOXIDE HCl 25 MG CAP PO SCH (03:00)
[2021-05-09] MEDS ORDERED: LORazepam 2 MG/1 ML VIAL IV PRN (03:00)
[2021-05-09] MEDS ORDERED: ONDANSETRON INJ 2 MG/ML 2 ML VIAL IV PRN (03:00)
[2021-05-09] MEDS ORDERED: ATIVAN IV ALCOHOL WITHDRAWL IV PRN (03:00)
[2021-05-09] MEDS: D5W AND 1/2NSS 1,000 ML IV SCH ×2 (03:40→13:45)
[2021-05-09] MEDS: LORazepam 2 MG/1 ML VIAL IV PRN ×8 (03:40→23:01)
[2021-05-09] MEDS: FOLIC ACID 1 MG in SYRINGE 9.8 ML IV SCH ×2 (04:33→09:01)
[2021-05-09] MEDS: THIAMINE HCL 100 MG in SYRINGE 9 ML IV SCH ×2 (04:33→09:01)
[2021-05-09 05:27] LABS: Basophils # (auto) 0.01 K/uL (0-0.2); Basophils % (auto) 0.2 %; Eosinophils # (auto) 0.06 K/uL (0-0.5); Hematocrit (blood only) 40.4 % (42-52); Hemoglobin 13.5 g/dL (14.0-18.0); Immature Granulocytes # (auto) 0.02 K/uL (0.00-0.02); Immature Granulocytes % (auto) 0.3 %; Lymphocytes # (auto) 1.79 K/uL (1.2-3.4); Lymphocytes % (auto) 29.3 %; Mean Corpuscular Hemoglobin 31.3 pg (25-34); Mean Corpuscular Hgb Conc 33.4 g/dL (32-36); Mean Corpuscular Volume 93.7 fL (80-100); Mean Platelet Volume 9.6 fL (7.4-10.4); Monocytes # (auto) 0.89 K/uL (0.11-0.59); Monocytes % (auto) 14.6 %; Neutrophils # (auto) 3.33 K/uL (1.4-6.5); Neutrophils % (auto) 54.6 %; Platelet Count 179 K/uL (130-400); RDW Coefficient of Variation 13.4 % (11.5-14.5); RDW Standard Deviation 46.6 fL (36.4-46.3); Red Blood Count 4.31 M/uL (4.7-6.1)
[2021-05-09 05:56] LABS: Albumin Level 4.5 gm/dl (3.4-5.0); BUN Creatinine Ratio 17.3 (10-20); Bilirubin Direct 0.1 mg/dl (0-0.2); Bilirubin,Total 0.4 mg/dl (0.2-1.0); Creatinine Clr Calc Pharmacy 135.1 ml/min; Est GFR (African American) 132.1 ml/min; Est GFR (Non-African American) 113.9 ml/min; Magnesium 1.9 mg/dl (1.7-2.4); Potassium 3.9 mmol/L (3.5-5.1)
--- NOTE | 2021-05-09 08:47 | Electrocardiogram Report ---
Test Reason : Blood Pressure : / mmHG Vent. Rate : 095 BPM Atrial Rate : 095 BPM P-R Int : 154 ms QRS Dur : 084 ms QT Int : 350 ms P-R-T Axes : 027 -01 016 degrees QTc Int : 439 ms Poor data quality, interpretation may be adversely affected Normal sinus rhythm with sinus arrhythmia Moderate voltage criteria for LVH, may be normal variant Borderline ECG No previous ECGs available Confirmed by Shane Glass ([id number]) on 05/09/2021 8:46:58 AM Referred By: REFERRED SELF Confirmed By:John Glass
[2021-05-09] MEDS ORDERED: SERTRALINE HCL 50 MG TABLET PO SCH (09:00)
[2021-05-09] MEDS: ENOXAPARIN INJ 40 MG/0.4 ML SYR SQ SCH (09:00)
--- NOTE | 2021-05-09 13:16 | Hospitalist Progress Note ---
Date of Service May 09, 2021 Assessment & Plan (1) MDD (major depressive disorder), recurrent episode, mild: (2) JACQUE (generalized anxiety disorder): (3) Opioid use disorder, moderate, in sustained remission, on maintenance therapy: (4) Alcohol withdrawal: (5) Alcohol use disorder, moderate, dependence: Plan: Patient currently in alcohol withdrawal with delirium tremens Additional ativan given Continue librium. Monitor AWSS per protocol Neuro checks Fall precautions Continue thiamine, folate and IVF Hold buproprion for now to reduce seizure risk until full psych evaluation Psych consult Patient will benefit from inpatient rehab on discharge. Father agrees. CM consulted for this Monitor electrolytes Admission and Anticipated Discharge Date Admission Date: May 08, 2021 Subjective Patient seen and examined Patient's father at bedside. Patient is currently delirium, confused and agitated. He is also having generali zed tremors ROS limited due to this Review of Systems Review of Systems: Unobtainable due to reduced consciousness Physical Exam Constitutional: Confused with generalized tremors Eyes: PERRL, conjunctivae normal, anicteric sclerae ENMT: external ear and nose normal, oropharynx normal Respiratory: normal respiratory effort, lungs clear to auscultation Cardiovascular: Rate/Rhythm: + tachycardic S1 S2 Gastrointestinal (Abdomen): normal bowel sounds, soft, nontender, no hepatosplenomegaly Musculoskeletal: No pedal edema Neurologic: PERRL, EOMI Patient has generalized tremors of extremities Psychiatric: Oriented to person, knows he is [place] but not where, not oriented to time. Otherwise confused, mostly cooperative but not answering most questions appropriately Results & Data Results & Data ([facility]) Vital Signs (Past 12 Hours) Vital Signs Temp Pulse Pulse Resp BP BP Pulse Ox 05/09/21 12:00 36.8 C 112 H 18 142/82 H 96 05/09/21 08:00 26.9 C L 112 H 22 132/95 98 05/09/21 03:38 36.8 C 95 H 21 128/73 95 05/09/21 03:30 96 H 23 05/09/21 03:00 36.8 C 102 H 89 24 128/73 97 05/09/21 02:30 105 H 21 95 05/09/21 01:40 100 H 21 117/72 95 Laboratory Results Abnormal lab results 05/08/21 05/08/21 05/08/21 Range/Units 20:43 20:43 20:43 RBC 4.56 L (4.7-6.1) M/uL Hgb (14.0-18.0) g/dL Hct (42-52) % RDW Std Deviation (36.4-46.3) fL [place] # (Auto) 0.86 H (0.11-0.59) K/uL Immature Gran # (Auto) 0.04 H (0.00-0.02) K/uL AST 84 H (13-39) U/L ALT 100 H (7-52) U/L Ethyl Alcohol mg/dL 240.5 H (<10.0) mg/dl 05/09/21 05/09/21 Range/Units 04:59 04:59 RBC 4.31 L (4.7-6.1) M/uL Hgb 13.5 L (14.0-18.0) g/dL Hct 40.4 L (42-52) % RDW Std Deviation 46.6 H (36.4-46.3) fL [place] # (Auto) 0.89 H (0.11-0.59) K/uL Immature Gran # (Auto) (0.00-0.02) K/uL AST 68 H (13-39) U/L ALT 87 H (7-52) U/L Ethyl Alcohol mg/dL (<10.0) mg/dl (1) Alcohol withdrawal Complication of substance-induced condition: with unspecified complication Qualified Code(s): F10.239 - Alcohol dependence with withdrawal, unspecified
[2021-05-09] MEDS ORDERED: buPROPion XL 150 MG TABCR PO SCH (16:30)
--- NOTE | 2021-05-09 16:36 | Psychiatric Consultation ---
Date of Consultation May 09, 2021 Impression / Recommendations Impression Alcohol use disorder with complicated withdrawal/delirium. During last admission he declined recommendations for residential substance use treatment or intensive outpatient program as well as medication assisted treatment with acamprosate. As alcohol withdrawal delirium improves will revisit these recommendations with him to see what he may be open to and determining what/if any have been barriers to [place] dual diagnosis therapy follow-up and AA participation. Would hold Wellbutrin given potential to worsen delirium and lower seizure threshold. Once he is able to communicate/delirium has improved we'll discuss resources for substance use treatment as above. (1) Opioid use disorder, moderate, in sustained remission, on maintenance therapy: (2) Alcohol use disorder, severe, dependence: -Continue AWSS as well as thiamine and folic acid -Hold Wellbutrin Psych History Identifying Data 41 yo man with history of opioid use disorder in sustained remission on suboxone, unspecified depression and alcohol use disorder severe admitted medically for complicated withdrawal. Psychiatry consulted for recommendations. Chief Complaint patient sleeping History of Present Illness Bautista is to familiar to me and our service from his recent admission a few weeks ago in late March 2021 for similar presentation regarding withdrawal from alcohol use. Overnight and through today he had periods of behavioral agitation with confusion and observed to be hallucinating and with poor boundaries. He was placed on 1-on-1 who noted that he some agitation through this afternoon until falling back asleep. On my assessment he is sleeping and does not rouse to verbal prompts nor was it felt beneficial to continue repeated attempts to rouse him given recent agitation. Based on review of ED and hospitalist notes he re-presents for alcohol use consuming approximately 8-10 beers per day since his recent discharge. Reportedly he may not have been able to follow-up via telemedicine with his appointment at [place]. Past Psychiatric History Outpatient Services: Dr. Conroy for addiction medicine in [place], referred for [place] telemedicine therapy services after recent discharge 04/14/21 Previous Psych Admissions: none History of Previous Suicide Attempt: No Allergies Allergy/AdvReac Type Severity Reaction Status Date / Time cephalexin [From Keflex] Allergy Hives Verified 05/08/21 21:13 Home Medications Medication Instructions Recorded Confirmed Type buprenorphine 8 mg-naloxone 2 mg 1 film SUBLINGUAL DAILY 04/10/21 05/08/21 History sublingual film (Suboxone) bupropion HCl 150 mg 24 hr tablet, 150 mg PO HS 05/08/21 05/08/21 History extended release (Wellbutrin XL) sertraline 150 mg capsule 150 mg PO QAM 05/08/21 05/08/21 History Substance Abuse History opioid use in past, now on suboxone; alcohol use Personal History Living Arrangements: Home (most recently had moved from [place] to his home in [facility]) Employment Status: [employer] Employed Beliefs That Will Affect Care: None Patient History Medical History (Updated 05/09/21 @ 16:36 by Prudence Perez MD) Alcohol abuse Alcohol use disorder, moderate, dependence MDD (major depressive disorder), recurrent episode, mild Opiate addiction Opioid use disorder, moderate, in sustained remission, on maintenance therapy Social History Smoking Status: Never smoker Hx Alcohol Use: Yes Alcohol type: beer Hx Substance Use: No Preferred Language: Belarusian Communication Ability: Effective 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: No Beliefs That Will Affect Care: None marital status: Current Living Situation: Alone Other Information That Helps Us Care for You: No Feels Safe at Home: Yes Safety Concerns: Feels Safe At This Time Assistive Devices: None Physical Exam Psychiatric: Orientation: + not alert Apperance: appropriately dressed and appropriately groomed Vital Signs (Past 24 Hours): Last Vital Signs Temp 36.8 C 05/09/21 12:00 Pulse 112 H 05/09/21 12:00 Resp 18 05/09/21 12:00 BP 142/82 H 05/09/21 12:00 Pulse Ox 96 05/09/21 12:00 Review of Systems Unobtainable due to reduced consciousness Results & Data (PSY) Laboratory Results elevated AST/ALT; positive for alcohol Medications Administered Chlordiazepoxide HCl (Chlordiazepoxide Hcl 25 Mg Cap) 50 mg PO Q6H [facility]IN[facility]; Taper Stop: 05/11/21 19:59 Last Admin: 05/09/21 14:44 Dose: 50 mg Documented by: [id number] Admin: 05/09/21 08:59 Dose: 50 mg Documented by: [id number] Enoxaparin Sodium (Enoxaparin Inj 40 Mg/0.4 Ml Syr) 40 mg SQ QAM [facility]IN[facility] Stop: 06/08/21 08:59 Last Admin: 05/09/21 09:00 Dose: 40 mg Documented by: [id number] Dextrose/Sodium Chloride (D5w And 1/2nss) 1,000 mls @ 100 mls/hr IV .Q10H [facility] Stop: 05/09/21 23:29 Last Admin: 05/09/21 13:45 Dose: 100 mls/hr Documented by: [id number] Infusion: 05/09/21 13:40 Dose: 100 mls/hr Documented by: [id number] Admin: 05/09/21 03:40 Dose: 100 mls/hr Documented by: [id number] Thiamine HCl 100 mg/ Syringe 10 mls @ 2 mls/min IV QAM [facility] Stop: 06/08/21 03:28 Last Admin: 05/09/21 09:01 Dose: 2 mls/min Documented by: [id number] Admin: 05/09/21 04:33 Dose: 2 mls/min Documented by: [id number] Folic Acid 1 mg/ Syringe 10 mls @ 5 mls/min IV QAM [facility] Stop: 06/08/21 03:28 Last Admin: 05/09/21 09:01 Dose: 5 mls/min Documented by: [id number] Admin: 05/09/21 04:33 Dose: 5 mls/min Documented by: [id number] Lorazepam (Lorazepam 2 Mg/1 Ml Vial) 2 mg IV UD PRN; Protocol PRN Reason: EtOH Withdrawl AWSS Score 8,9 Stop: 06/08/21 02:59 Last Admin: 05/09/21 13:45 Dose: 3 mg Documented by: [id number] Admin: 05/09/21 13:00 Dose: 3 mg Documented by: [id number] Admin: 05/09/21 12:35 Dose: 3 mg Documented by: [id number] Admin: 05/09/21 09:50 Dose: 3 mg Documented by: [id number] Admin: 05/09/21 08:27 Dose: 3 mg Documented by: [id number] Admin: 05/09/21 04:36 Dose: 2 mg Documented by: [id number] Admin: 05/09/21 03:40 Dose: 2 mg Documented by: [id number] Coding Level of Care Code 93284 Inpt Consult Level 2 Diagnoses Opioid use disorder, moderate, in sustained remission, on maintenance therapy F11.21 Alcohol use disorder, severe, dependence F10.20
[2021-05-09] MEDS: BUPRENORPHINE/NALOXONE 8/2 MG TAB SL SCH (18:30)
[2021-05-09] MEDS: SERTRALINE HCL 50 MG TABLET PO SCH (21:25)
[2021-05-10] MEDS: chlordiazePOXIDE HCl 25 MG CAP PO SCH ×3 (04:20→20:18)
[2021-05-10 05:06] LABS: Hematocrit (blood only) 37.9 % (42-52); Hemoglobin 12.9 g/dL (14.0-18.0); Mean Corpuscular Hemoglobin 31.7 pg (25-34); Mean Corpuscular Volume 93.1 fL (80-100); Platelet Count 150 K/uL (130-400); RDW Coefficient of Variation 13.4 % (11.5-14.5); RDW Standard Deviation 45.8 fL (36.4-46.3); Red Blood Count 4.07 M/uL (4.7-6.1); White Blood Count 4.53 K/uL (4.8-10.8)
[2021-05-10 05:49] LABS: Potassium 3.1 mmol/L (3.5-5.1)
[2021-05-10 05:50] LABS: Albumin Globulin Ratio 1.7 (0.9-2); Albumin Level 3.9 gm/dl (3.4-5.0); Bilirubin,Total 0.7 mg/dl (0.2-1.0); Calcium 8.4 mg/dl (8.5-10.1); Creatinine Clr Calc Pharmacy 144.8 ml/min; Est GFR (African American) 135.9 ml/min; Est GFR (Non-African American) 117.2 ml/min; Globulin 2.3 gm/dl (2.5-4.0); Phosphorus 4.2 mg/dl (2.5-4.9); Total Protein 6.2 gm/dl (6.0-8.3)
[2021-05-10] MEDS: ENOXAPARIN INJ 40 MG/0.4 ML SYR SQ SCH (09:55)
[2021-05-10] MEDS: THIAMINE HCL 100 MG in SYRINGE 9 ML IV SCH (09:55)
[2021-05-10] MEDS: FOLIC ACID 1 MG in SYRINGE 9.8 ML IV SCH (09:55)
[2021-05-10] MEDS ORDERED: POTASSIUM CHLORIDE CRTAB 20 MEQ TABCR PO ONE (10:19)
[2021-05-10] MEDS: LORazepam 2 MG/1 ML VIAL IV PRN ×3 (10:50→23:37)
--- NOTE | 2021-05-10 13:43 | Psychiatric Progress Note ---
Date of Service May 10, 2021 Impression / Recommendations Impression Alcohol use disorder with complicated withdrawal/delirium. Diagnostically consistent with alcohol use disorder and unspecified [id number] versus JACQUE versus likely combination of both. 05/10/21: He declines recommendation for residential or IOP substance use treatment but agrees to re-engage with outpatient dual diagnosis therapy for anxiety and alcohol use. He also remains motivated to engage with AA. Discussed my concerns that this plan was unsuccessful after recent admission but he feels he can obtain from alcohol after this discharge. He wishes to restart acamprosate. Discussed that Wellbutrin and hydroxyzine could be re-started tomorrow if he continues to show no signs of lingering delirium. Acute risk of self-harm is low as he denies SI. He does not desire inpatient psychiatric keanu tment nor does he meet involuntary criteria. (1) Opioid use disorder, moderate, in sustained remission, on maintenance therapy: (2) Alcohol use disorder, severe, dependence: (3) Anxiety disorder, unspecified: 05/10/21: -Continue AWSS as well as thiamine and folic acid -Psych liason will reach out to [facility] and start referrals for local outpatient suboxone and psychiatric provider -Given ongoing withdrawal will defer to hospitalists if appropriate to restart acamprosate 666mg TID yet -Tomorrow, if no signs of delirium, can restart Wellbutrin 150mg qAM and hydroxyzine 25mg q6h prn for anxiety Interval History Identifying Information 41 yo man with history of opioid use disorder in sustained remission on suboxone, unspecified depression and alcohol use disorder severe admitted medically for complicated withdrawal. Psychiatry consulted for recommendations. Chief Complaint "That was really awful, I felt like I was dreaming and I was hallucinating". Review of Systems Notes Reports stable sleep last night and improving appetite. Subjective Subjective Patient was seen & assessed and interval progress reviewed. No episodes of agitation overnight. This afternoon is awake, fully oriented and cooperative. Reviewed interim history since recent admission. His logged onto his [facility] but states they never got on and he sent a message but then felt discouraged and resumed drinking alcohol 6-8 beers per day for the last week, had been self-tapering at home when he started to develop hallucinations and came to ED. Remains motivated to avoid alcohol, not interested in missing work so doesn't want residential tx or IOP. Stated if he resumes drinking again after this admission then he will agree to residential. He desires a local suboxone provider. His addiction medicine prescriber in [place] did start him on acamprosate after his last discharge and he has been taking that and would like to restart it. He denies SI but endorses ongoing periods of anxiety for which he feels sertraline is not helpful. Reviewed that recent dose increase in sertraline won't show full effects for a few more weeks and after that could consider cross-taper to alternative SSRI if desired with outpatient provider which he is comfortable with. Physical Exam Psychiatric Orientation: alert and oriented x 3 Apperance: appropriately dressed and appropriately groomed Eye Contact: good eye contact Motor Behavior: no abnormal motor movements Speech: normal rate/rhythm/volume of speech Affect: + anxious affect Mood: + anxious mood Thought Process: goal directed thought process Thought Content: reality based without delusions Suicidal Thoughts: denies suicidal thoughts Homicidal Thoughts: denies homicidal thoughts Hallucinations: no auditory hallucinations and no visual hallucinations Cognition: attention grossly intact and language grossly intact Estimated Intelligence: consistent with education level Insight: + limited insight Judgement: + limited judgement Vital Signs (Past 24 Hours) Last Vital Signs Temp 36.8 C 05/10/21 12:00 Pulse 98 H 05/10/21 12:00 Resp 18 05/10/21 12:00 BP 111/95 05/10/21 12:00 Pulse Ox 98 05/10/21 12:00 Results & Data ([facility]) Laboratory Results Laboratory Results - last 24 hr 05/10/21 05/10/21 04:49 04:50 WBC 4.53 L RBC 4.07 L Hgb 12.9 L Hct 37.9 L MCV 93.1 MCH 31.7 MCHC 34.0 RDW Std Deviation 45.8 RDW Coeff of Chay 13.4 Plt Count 150 MPV 9.0 Sodium 138 Potassium 3.1 L D Chloride 105 Carbon Dioxide 26 Anion Gap 7 BUN 14 Creatinine 0.70 Est Cr Clr Drug Dosing 144.8 Est GFR ( Amer) 135.9 Est GFR (Non-Af Amer) 117.2 BUN/Creatinine Ratio 20.0 Glucose 90 Calcium 8.4 L Phosphorus 4.2 Magnesium 2.0 Total Bilirubin 0.7 AST 46 H ALT 64 H Alkaline Phosphatase 65 Total Protein 6.2 Albumin 3.9 Globulin 2.3 L Albumin/Globulin Ratio 1.7 Current Inpatient Medications Current Inpatient Medications: Current Inpatient Medications Buprenorphine/Naloxone (Buprenorphine/Naloxone 8/2 Mg Tab) 1 tab SL DAILY@1630 [facility] Stop: 06/08/21 16:29 Last Admin: 05/09/21 18:30 Dose: 1 tab Documented by: Chlordiazepoxide HCl (Chlordiazepoxide Hcl 10 Mg Cap) 10 mg PO Q12H [facility] Stop: 05/12/21 10:01 Chlordiazepoxide HCl (Chlordiazepoxide Hcl 25 Mg Cap) 50 mg PO Q8H [facility]; Taper Stop: 05/11/21 19:59 Last Admin: 05/10/21 12:18 Dose: 50 mg Documented by: Enoxaparin Sodium (Enoxaparin Inj 40 Mg/0.4 Ml Syr) [facility] Stop: 06/08/21 08:59 Last Admin: 05/10/21 09:55 Dose: 40 mg Documented by: Thiamine HCl 100 mg/ Syringe 10 mls @ 2 mls[facility] Stop: 06/08/21 03:28 Last Admin: 05/10/21 09:55 Dose: 2 mls/min Documented by: Folic Acid 1 mg/ Syringe 10 mls @ 5 mls[facility] Stop: 06/08/21 03:28 Last Admin: 05/10/21 09:55 Dose: 5 mls/min Documented by: Lorazepam (Lorazepam 2 Mg/1 Ml Vial) 1 mg IV UD PRN; Protocol PRN Reason: EtOH Withdrawl AWSS Score 6,7 Stop: 06/08/21 02:59 Last Admin: 05/09/21 23:01 Dose: 1 mg Documented by: Lorazepam (Lorazepam 2 Mg/1 Ml Vial) 2 mg IV UD PRN; Protocol PRN Reason: EtOH Withdrawl AWSS Score 8,9 Stop: 06/08/21 02:59 Last Admin: 05/10/21 10:50 Dose: 2 mg Documented by: Nitroglycerin (Nitroglycerin Sl 0.4 Mg/Tab Tab) 0.4 mg SL Q5M PRN PRN Reason: Chest Pain Stop: 06/08/21 02:59 Ondansetron HCl (Ondansetron Inj 2 Mg/Ml 2 Ml Vial) 4 mg IV Q6H PRN PRN Reason: Nausea Stop: 06/08/21 02:59 Sertraline HCl (Sertraline Hcl 50 Mg Tablet) 150 mg PO HS [facility] Stop: 06/08/21 20:59 Last Admin: 05/09/21 21:25 Dose: 150 mg Documented by:
--- NOTE | 2021-05-10 16:21 | Hospitalist Progress Note ---
Date of Service May 10, 2021 Assessment & Plan (1) MDD (major depressive disorder), recurrent episode, mild: (2) JACQUE (generalized anxiety disorder): (3) Opioid use disorder, moderate, in sustained remission, on maintenance therapy: (4) Alcohol withdrawal: (5) Alcohol use disorder, moderate, dependence: Plan: Alcohol Abuse disorder: Alcohol Withdrawal with delirium tremens Alcohol level:240 Monitor for withdrawal seizure/fall precautions Alcohol withdrawal protocol with Librium, Ativan PRN Continue Thiamine, folic acid Monitor LFTs Currently not interested in inpatient rehab placement Prefers to have outpatient rehab services Mental status slowly improving Depression Generalized anxiety disorder Opiate use disorder Hold bupropion today, plan to resume tomorrow Appreciate Psychiatry Input Hydroxyzine as needed Resume Acamprosate as able Also on Zoloft DVT prophylaxis Lovenox SQ CODE STATUS Full code Admission and Anticipated Discharge Date Admission Date: May 08, 2021 Subjective Patient is seen and examined at bedside States having tremors, dizziness with change in position Also reports being anxious intermittently Denies any chest pain, shortness of breath, nausea, abdominal pain Currently not interested in inpatient rehab placement Review of Systems Review of Systems: All systems reviewed & are unremarkable except as noted in Subjective Physical Exam Physical Exam: Physical Exam: Vitals signs as noted above General Appearance:Moderately built and nourished, no apparent distress Head: normocephalic, Atraumatic Eyes: normal inspection, EOMI Neck: supple, Trachea midline Respiratory/Chest: Normal breath sounds, CTA, No accessory muscle use Cardiovascular: S1, S2, No murmur Abdomen/GI:Soft, Non tender, Bowel sounds present Extremities/Musculoskeletal:normal inspection, no edema Neurologic/Psych:AAOX3, grossly no focal neurological deficits, +Tremor Skin: normal color, warm Results & Data Results & Data ([facility]) Vital Signs (Past 12 Hours) Vital Signs Temp Pulse Resp BP Pulse Ox 05/10/21 12:00 36.8 C 98 H 18 111/95 98 05/10/21 08:00 36.9 C 77 18 120/76 95 Laboratory Results Short CBC 05/10/21 Range/Units 04:50 WBC 4.53 L (4.8-10.8) K/uL Hgb 12.9 L (14.0-18.0) g/dL Hct 37.9 L (42-52) % Plt Count 150 (130-400) K/uL BMP 05/10/21 04:49 Sodium 138 Potassium 3.1 L D Chloride 105 Carbon Dioxide 26 BUN 14 Creatinine 0.70 Glucose 90 Calcium 8.4 L Liver Function 05/10/21 Range/Units 04:49 Total Bilirubin 0.7 (0.2-1.0) mg/dl AST 46 H (13-39) U/L ALT 64 H (7-52) U/L Alkaline Phosphatase 65 (34-104) U/L Albumin 3.9 (3.4-5.0) gm/dl (1) Alcohol withdrawal Complication of substance-induced condition: with unspecified complication Qualified Code(s): F10.239 - Alcohol dependence with withdrawal, unspecified
[2021-05-10] MEDS: BUPRENORPHINE/NALOXONE 8/2 MG TAB SL SCH (17:51)
[2021-05-10] MEDS: SERTRALINE HCL 50 MG TABLET PO SCH (20:19)
[2021-05-11] MEDS ORDERED: ACETAMINOPHEN 325 MG TAB PO PRN (03:48)
[2021-05-11] MEDS: chlordiazePOXIDE HCl 25 MG CAP PO SCH ×2 (03:58→11:49)
[2021-05-11 07:10] LABS: Albumin Globulin Ratio 1.6 (0.9-2); BUN Creatinine Ratio 23.3 (10-20); Bilirubin,Total 0.4 mg/dl (0.2-1.0); Calcium 8.7 mg/dl (8.5-10.1); Creatinine Clr Calc Pharmacy 138.5 ml/min; Est GFR (African American) 133.5 ml/min; Est GFR (Non-African American) 115.2 ml/min; Globulin 2.5 gm/dl (2.5-4.0); Potassium 3.5 mmol/L (3.5-5.1); Total Protein 6.5 gm/dl (6.0-8.3)
[2021-05-11] MEDS: FOLIC ACID 1 MG in SYRINGE 9.8 ML IV SCH (08:25)
[2021-05-11] MEDS: THIAMINE HCL 100 MG in SYRINGE 9 ML IV SCH (08:25)
[2021-05-11] MEDS: ENOXAPARIN INJ 40 MG/0.4 ML SYR SQ SCH (08:26)
[2021-05-11] MEDS: LORazepam 2 MG/1 ML VIAL IV PRN ×4 (08:47→19:52)
[2021-05-11] MEDS ORDERED: Nursing to Pharmacy Communication SCH (11:45)
[2021-05-11] MEDS: SERTRALINE HCL 50 MG TABLET PO SCH (11:49)
--- NOTE | 2021-05-11 16:25 | Hospitalist Progress Note ---
Date of Service May 11, 2021 Assessment & Plan (1) MDD (major depressive disorder), recurrent episode, mild: (2) JACUQE (generalized anxiety disorder): (3) Opioid use disorder, moderate, in sustained remission, on maintenance therapy: (4) Alcohol withdrawal: (5) Alcohol use disorder, moderate, dependence: Plan: Alcohol Abuse disorder: Alcohol Withdrawal with delirium tremens Alcohol level:240 Monitor for withdrawal seizure/fall precautions Alcohol withdrawal protocol with Librium, Ativan PRN Continue Thiamine, folic acid Monitor LFTs Currently not interested in inpatient rehab placement Prefers to have outpatient rehab services Mental status back to baseline Restarted Acamprosate Continue current management Depression Generalized anxiety disorder Opiate use disorder Restarted bupropion Appreciate Psychiatry Input Hydroxyzine as needed Also on Zoloft DVT prophylaxis Lovenox SQ CODE STATUS Full code Admission and Anticipated Discharge Date Admission Date: May 08, 2021 Subjective Patient is seen and examined at bedside States feeling better today Decreased tremor, less anxious today Reports intermittent hallucinations No other complaints Denies any chest pain, shortness of breath, nausea, abdominal pain Review of Systems Review of Systems: All systems reviewed & are unremarkable except as noted in Subjective Physical Exam Physical Exam: Physical Exam: Vitals signs as noted above General Appearance:Moderately built and nourished, no apparent distress Head: normocephalic, Atraumatic Eyes: normal inspection, EOMI Neck: supple, Trachea midline Respiratory/Chest: Normal breath sounds, CTA, No accessory muscle use Cardiovascular: S1, S2, No murmur Abdomen/GI:Soft, Non tender, Bowel sounds present Extremities/Musculoskeletal:normal inspection, no edema Neurologic/Psych:AAOX3, grossly no focal neurological deficits, +Tremor Skin: normal color, warm Results & Data Results & Data ([facility]) Vital Signs (Past 12 Hours) Vital Signs Temp Pulse Pulse Resp BP Pulse Ox 05/11/21 15:51 63 05/11/21 15:16 36.5 C 80 18 117/76 97 05/11/21 12:08 36.5 C 73 17 113/77 96 05/11/21 11:36 60 05/11/21 07:58 36.4 C L 71 18 121/75 98 Laboratory Results [facility] 05/11/21 05:40 Sodium 136 Potassium 3.5 Chloride 105 Carbon Dioxide 24 BUN 17 Creatinine 0.73 Glucose 88 Calcium 8.7 Liver Function 05/11/21 Range/Units 05:40 Total Bilirubin 0.4 (0.2-1.0) mg/dl AST 36 (13-39) U/L ALT 57 H (7-52) U/L Alkaline Phosphatase 65 (34-104) U/L Albumin 4.0 (3.4-5.0) gm/dl (1) Alcohol withdrawal Complication of substance-induced condition: with unspecified complication Qualified Code(s): F10.239 - Alcohol dependence with withdrawal, unspecified
[2021-05-11] MEDS: BUPRENORPHINE/NALOXONE 8/2 MG TAB SL SCH (16:41)
[2021-05-11] MEDS ORDERED: buPROPion XL 150 MG TABCR PO SCH (21:00)
[2021-05-12] MEDS: LORazepam 2 MG/1 ML VIAL IV PRN ×2 (03:32→12:48)
[2021-05-12 06:07] LABS: Hematocrit (blood only) 39.1 % (42-52); Hemoglobin 12.9 g/dL (14.0-18.0); Mean Corpuscular Hemoglobin 31.1 pg (25-34); Mean Corpuscular Volume 94.2 fL (80-100); Mean Platelet Volume 9.5 fL (7.4-10.4); Platelet Count 181 K/uL (130-400); RDW Standard Deviation 44.5 fL (36.4-46.3); Red Blood Count 4.15 M/uL (4.7-6.1); White Blood Count 4.71 K/uL (4.8-10.8)
[2021-05-12 06:33] LABS: BUN Creatinine Ratio 19.7 (10-20); Calcium 8.8 mg/dl (8.5-10.1); Creatinine Clr Calc Pharmacy 133.7 ml/min; Est GFR (African American) 131.3 ml/min; Est GFR (Non-African American) 113.3 ml/min; Magnesium 2.1 mg/dl (1.7-2.4); Potassium 3.7 mmol/L (3.5-5.1)
[2021-05-12] MEDS: FOLIC ACID 1 MG in SYRINGE 9.8 ML IV SCH (08:54)
[2021-05-12] MEDS: ENOXAPARIN INJ 40 MG/0.4 ML SYR SQ SCH (08:54)
[2021-05-12] MEDS: SERTRALINE HCL 50 MG TABLET PO SCH (08:55)
[2021-05-12] MEDS: THIAMINE HCL 100 MG in SYRINGE 9 ML IV SCH (08:56)
--- NOTE | 2021-05-12 09:55 | Communication Note ---
Date of Service: May 12, 2021 Reviewed chart, switched Wellbutrin from HS to qAM dosing as this can cause significant insomnia and should be taken in the morning. Discussed option to restart acamprosate with Dr. Sheppard. Psych liason to round on Bautista today to ensure he was able to schedule an intake appointment with local [facility] for suboxone and psychiatric followup and will confirm therapy follow-up with [facility].
--- NOTE | 2021-05-12 13:33 | Hospitalist Progress Note ---
Date of Service May 12, 2021 Assessment & Plan (1) MDD (major depressive disorder), recurrent episode, mild: (2) JACUQE (generalized anxiety disorder): (3) Opioid use disorder, moderate, in sustained remission, on maintenance therapy: (4) Alcohol withdrawal: (5) Alcohol use disorder, moderate, dependence: Plan: Alcohol Abuse disorder: Alcohol Withdrawal with delirium tremens Alcohol level:240 Monitor for withdrawal seizure/fall precautions Completed Alcohol withdrawal protocol with Librium On Ativan PRN Continue Thiamine, folic acid Monitor LFTs Currently not interested in inpatient rehab placement Prefers to have outpatient rehab services Mental status back to baseline Restarted Acamprosate Plan to discharge home today Counseled to quit alcohol use Depression Generalized anxiety disorder Opiate use disorder Continue bupropion Appreciate Psychiatry Input Hydroxyzine as needed Also on Zoloft Needs follow up with Psychiatry upon discharge DVT prophylaxis Lovenox SQ CODE STATUS Full code Admission and Anticipated Discharge Date Admission Date: May 08, 2021 Subjective Patient is seen and examined at bedside Doing well today No new complaints Tremors much improved Denies any chest pain, shortness of breath, nausea, abdominal pain Eager to get discharged Review of Systems Review of Systems: All systems reviewed & are unremarkable except as noted in Subjective Physical Exam Physical Exam: Physical Exam: Vitals signs as noted above General Appearance:Moderately built and nourished, no apparent distress Head: normocephalic, Atraumatic Eyes: normal inspection, EOMI Neck: supple, Trachea midline Respiratory/Chest: Normal breath sounds, CTA, No accessory muscle use Cardiovascular: S1, S2, No murmur Abdomen/GI:Soft, Non tender, Bowel sounds present Extremities/Musculoskeletal:normal inspection, no edema Neurologic/Psych:AAOX3, grossly no focal neurological deficits, +Tremor Skin: normal color, warm Results & Data Results & Data ([facility]) Vital Signs (Past 12 Hours) Vital Signs Temp Pulse Resp BP Pulse Ox 05/12/21 10:37 36.8 C 79 19 109/75 98 05/12/21 07:09 36.4 C L 69 12 118/79 95 05/12/21 03:35 36.2 C L 63 18 128/108 H 95 Laboratory Results Short CBC 05/12/21 Range/Units 05:41 WBC 4.71 L (4.8-10.8) K/uL Hgb 12.9 L (14.0-18.0) g/dL Hct 39.1 L (42-52) % Plt Count 181 (130-400) K/uL BMP 05/12/21 05:41 Sodium 136 Potassium 3.7 Chloride 105 Carbon Dioxide 22 BUN 15 Creatinine 0.76 Glucose 85 Calcium 8.8 (1) Alcohol withdrawal Complication of substance-induced condition: with unspecified complication Qualified Code(s): F10.239 - Alcohol dependence with withdrawal, unspecified
[2021-05-12] MEDS ORDERED: hydrOXYzine HCl 25 MG TAB PO PRN (13:45)
--- NOTE | 2021-05-12 13:47 | Discharge Summary ---
Date of Service May 12, 2021 Admission HPI Per Admitting Provider CHIEF COMPLAINT: Alcoholism. HISTORY OF PRESENT ILLNESS: A 41-year-old male with past medical history significant for history of opioid dependence, in remission, currently on Suboxone; alcoholism; anxiety. The patient was recently in the hospital for alcoholism, got discharged. His sertraline dose was increased to 150 mg and he is on hydroxyzine p.r.n., thiamine and folic acid. Comes back because of alcoholism. The patient says after going home, he is supposed to follow with psychiatry, but on the [facility], doctor was not able to come. He states he is drinking about 8 to 10 beers every day and his alcohol level was 240. He states he is living in a recreation house, there are always some people in the house. He seems somewhat confused but answering simple questions.Denies any chest pain. No shortness of breath, no cough, no fever, no headache, no nausea, no vomiting, no abdominal pain. Normal bowel and bladder movements. He was slightly tachycardic when he came in. With medications, currently his heart rates is under control. Hemodynamically stable. Admission Exam Per Admitting Provider PHYSICAL EXAMINATION: GENERAL: The patient is of moderate build, not in acute distress. VITAL SIGNS: Temperature 36.8, pulse 94, respiratory 24, blood pressure 134/78, oxygen 95% on room air. HEENT: Pupils equal, round, and reactive to light. Oral mucosa moist. NECK: No JVD, no neck masses. CARDIOVASCULAR: S1 and S2 heard, tachycardia. No murmurs. RESPIRATORY SYSTEM: Normal AP diameter. No accessory muscle use. No wheezing, no crackles. ABDOMEN: Soft, bowel sounds present, nontender, no distention. CENTRAL NERVOUS SYSTEM: Cranial nerves II through XII are grossly intact. Alert, awake, and oriented to name. Knows he is in the hospital, but thinks it is [facility]. Could not tell the current date. Could tell his date of . Obeys simple commands. Moves extremities. EXTREMITIES: No edema, no erythema. Principal Diagnosis Alcohol Withdrawal Depression Generalized anxiety disorder Discharge Data Allergies Allergy/AdvReac Type Severity Reaction Status Date / Time cephalexin [From Keflex] Allergy Hives Verified 05/08/21 21:13 Consultations 05/08/21 21:48 ED Decision to Admit Stat 05/09/21 12:58 Consult Psychiatry Routine Hospital Course (1) MDD (major depressive disorder), recurrent episode, mild: (2) JACQUE (generalized anxiety disorder): (3) Opioid use disorder, moderate, in sustained remission, on maintenance therapy: (4) Alcohol withdrawal: (5) Alcohol use disorder, moderate, dependence: Alcohol Abuse disorder: Alcohol Withdrawal with delirium tremens Alcohol level:240 Monitor for withdrawal seizure/fall precautions Completed Alcohol withdrawal protocol with Librium On Ativan PRN Continue Thiamine, folic acid Monitor LFTs Currently not interested in inpatient rehab placement Prefers to have outpatient rehab services Mental status back to baseline Restarted Acamprosate Plan to discharge home today Counseled to quit alcohol use Depression Generalized anxiety disorder Opiate use disorder Continue bupropion Appreciate Psychiatry Input Hydroxyzine as needed Also on Zoloft Needs follow up with Psychiatry upon discharge DVT prophylaxis Lovenox SQ CODE STATUS Full code Total Time Total Time Spent Total Time Spent (In Minutes): 43 minutes Discharge Plan Discharge Items Patient Disposition: Home - Self-Care Reason For Visit: ALCOHOLISM Discharge Diagnosis: Alcohol Withdrawal Depression Generalized anxiety disorder Activity: Per Instructions section Exercise/Sports: Gradually increase as tolerated Non-emergency contact: Primary Care Provider and Psychiatrist Call non-emergency contact if: you have any medication questions, your symptoms worsen, your pain is concerning for you and you have a fever Follow-up/Referrals: Bruna Lemus DO [Primary Care Provider] - (Date & Time 05/17/2021 11:00 AM Provider Bruna Lemus DO Department [facility] ) Diet: Heart Healthy Add Attending Provider Instructions: Follow up with your Primary Care physician Dr.Jessie Lemus on 05/17/2021 11:00 AM Follow up with your Psychiatrist in 1-2 weeks --Quit drinking Alcohol as advised. Seek immediate medical attention if your symptoms reoccur or worsen Please take all medications as instructed on discharge list below. Please call if you have any questions or problems. You can reach a [facility] hospitalist on duty at [facility] 24 hours a day by calling [phone] Pending Studies at Discharge: No Stand-Alone Forms: My [facility] [employer], Smoking Cessation Medications and DC Order Prescriptions: New hydroxyzine HCl 25 mg Tablet 25 mg PO Q8H PRN (Reason: anxiety) Qty: 15 RF: 0 thiamine HCl (vitamin B1) 100 mg tablet 100 mg PO DAILY Qty: 30 RF: 0 folic acid 1 mg tablet 1 mg PO DAILY Qty: 30 RF: 0 Continued buprenorphine-naloxone [Suboxone] 8-2 mg Film 1 film SUBLINGUAL DAILY RF: 0 sertraline 150 mg capsule 150 mg PO QAM RF: 0 acamprosate 666 mg PO TID RF: 0 bupropion HCl [Wellbutrin XL] 150 mg tablet extended release 24 hr 150 mg PO QAM Qty: 0 RF: 0 Discharge Orders: Discharge Order (Routine); Ordered 05/12/21 Ordered By: Melvin Sheppard Admission Data Admit Date/Time: 05/08/21 22:58 Attending Provider: Melvin Sheppard Admit Provider: Shailesh Wan Primary Care Provider: Bruna Lemus Other Providers: Shailesh Wan ; Prudence Perez ; Yudy Braga ; Paula Garrison ; Ata Simms
[2021-05-12] MEDS: BUPRENORPHINE/NALOXONE 8/2 MG TAB SL SCH (16:41)
[2021-05-13] MEDS ORDERED: buPROPion XL 150 MG TABCR PO SCH (09:00)
== END 2021-05-12 05:00 | disposition home or self-care (01) | DRG 897 ==
LOC: ED 18:54 → EDINP 22:58 → SUATTDRO 22:58 → 2E 05-09 01:48

== ENCOUNTER 2021-05-31 16:48 | Inpatient (IN) ==
--- NOTE | 2021-05-31 17:50 | Emergency Department Note ---
Impression & Plan Alcohol withdrawal, Alcohol use disorder, severe, dependence, Alcohol abuse, Tachycardia ED Provider Note NAME: KEVIN DUVALL AGE: 41 SEX: M : 1980 ARRIVES VIA: Walk-In INFORMANT: Patient, ED PROVIDER(S): Onur Larry MD Chief Complaint: Alcohol withdrawal, detox HPI: Patient does present feeling somewhat tremulous and anxious and is wanting detox from Suboxone as well as alcohol. The patient last drank at approximately 3 PM. The patient does have a known history of alcohol abuse and chronic Naik boxone use for history of opiate abuse. Patient denies any chest pain shortness of breath nausea or vomiting. I had seen the patient in the last month or 2 for similar symptoms. The patient was inpatient at that time for approximate 4 days. Patient has had increasing stress at he has issues with his home life and may unfortunately lose his job. Patient did drink 316 ounce beers this morning. Patient denies any nausea vomiting. ROS: See HPI for pertinent positives and negatives. A total of 10 systems were reviewed and otherwise negative. Past medical history: See below Surgical history: See below Social history: See below Physical Exam: GENERAL: Slightly anxious in appearance and mild tremors noted. EYE EXAM: Normal conjunctiva. PERRL, no anisocoria and EOM's grossly intact w/o pain. OROPHARYNX: Moist mucus membranes. Grossly normal dentition. NECK: Supple, no nuchal rigidity, no adenopathy, non-tender. No signs of meningismus. LUNGS: Clear to auscultation. Normal chest wall mechanics. HEART: NSR, no MRG. ABDOMEN: Abdomen soft, non-tender, normo-active bowel sounds, no masses, no rebound or guarding. BACK: No CVA TTP. SKIN: No rashes and no bruising. UPPER EXTREMITIES: Upper extremities are grossly normal. Bilateral upper extremity tremors noted. LOWER EXTREMITIES: Grossly normal, no edema. NEURO EXAM: A&O x3, cranial nerves II-XII grossly intact, normal speech, moves all 4 extremities on command w/o issue. Differential diagnoses: Infection, dehydration, metabolic abnormality, hypo/hyperglycemia, electrolyte disturbance, anemia, hypoxia, cardiac sources, intracerebral event, toxicologic, neurologic, as well as other pathologies. Course: Patient was seen and evaluated the bedside. Full history physical exam was performed. Imaging Studies: See Below Cardiac monitoring: An order was placed for continuous cardiac monitoring. The monitor shows a rate of 95 with sinus rhythm. MDM: Patient was seen due to concern for detox request and possible withdrawal symptoms. The patient is a fairly heavy drinker baseline and the patient does have some tremors. The patient was ordered banana bag as well as Librium and Ativan as needed. Patient did have an episode of hypoxia. Patient denies any shortness of breath or chest pains. The patient does not have any lower extremity edema. Chest x-ray is negative. Given the patient's symptoms and wanting for detox do not think he can do so at this time given the concern for the possibility of withdrawal. Patient is a normal white count H&H and platelet count. Kidney function is unremarkable. Mild elevation in his AST and ALT as well as his TSH. Alcohol was just under 200. Covid negative. I did speak the on-call hospitalist Dr. Wna and the patient was admitted to the medicine service. Critical Care: I have personally spent 37 minutes of critical care time in direct management of this patient. This includes bedside care, interpretation of diagnostic studies, and testing, discussion with consultants, patient, and family members, and other require inpatient management activities. This 37 minutes is in excess of all separately billable procedures. Past Med/Surg History Medical History Alcohol abuse Alcohol use disorder, moderate, dependence Anxiety disorder, unspecified MDD (major depressive disorder), recurrent episode, mild Opiate addiction Opioid use disorder, moderate, in sustained remission, on maintenance therapy Social History Smoking Status: Never smoker Hx Alcohol Use: Yes Alcohol type: beer Hx Substance Use: No Preferred Language: Khmer Communication Ability: Effective Shoulder Joiner Required: No Beliefs That Will Affect Care: None marital status: Current Living Situation: Family Other Information That Helps Us Care for You: No Feels Safe at Home: Yes Safety Concerns: Feels Safe At This Time Assistive Devices: None Allergies Allergies Allergy/AdvReac Type Severity Reaction Status Date / Time cephalexin [From Keflex] Allergy Hives Verified 05/31/21 18:54 Home Meds Home Medications Medication Instructions Recorded Confirmed buprenorphine 8 mg-naloxone 2 mg 1 film SUBLINGUAL DAILY 04/10/21 05/31/21 sublingual film (Suboxone) gabapentin 100 mg capsule 100 mg PO TID 05/31/21 05/31/21 hydroxyzine HCl 10 mg tablet 10 mg PO TID 05/31/21 05/31/21 hydroxyzine pamoate 50 mg capsule 50 mg PO Q8 PRN 05/31/21 05/31/21 sertraline 100 mg tablet 200 mg PO DAILY 05/31/21 05/31/21 Previous Rx's Medication Instructions Recorded folic acid 1 mg tablet 1 mg PO DAILY #30 tab 05/12/21 hydroxyzine HCl 25 mg tablet 25 mg PO Q8H PRN #15 tab 05/12/21 thiamine HCl (vitamin B1) 100 mg 100 mg PO DAILY #30 tab 05/12/21 tablet Results & Data (ED) Vital Signs Vital Signs - 24 hr 05/31/21 16:56 05/31/21 18:05 05/31/21 18:25 Temperature 36.2 C L Temperature Source Temporal Artery Scan Pulse Rate 115 H Pulse Rate [Apical] 104 H Respiratory Rate 20 16 Respiratory Effort / Characteristics Non-Labored Non-Labored Respiratory Depth Normal Normal Respiratory Pattern Regular Blood Pressure 139/101 H Blood Pressure [Left Arm] 88/66 L Blood Pressure Mean 113 Blood Pressure Mean [Left Arm] 73 Pulse Oximetry 96 92 89 L Oxygen Delivery Method Room Air Room Air Room Air Sepsis Recent Fever Within 48 Hours No Sepsis New/Unexplained Change in Mental Status No Sepsis Action Taken by Nursing No Action Required Oxygen Flow Rate - Titration 2 Pulse Oximetry Post Tiitration 95 Home Medications Current Medication List: was personally reviewed by me Laboratory Data Attestation: I reviewed the patient's lab results. Result diagrams: 05/31/21 17:45 05/31/21 17:45 Lab Results 05/31/21 05/31/21 05/31/21 Range/Units 17:45 17:45 17:45 WBC 6.24 (4.8-10.8) K/uL RBC 4.95 (4.7-6.1) M/uL Hgb 15.4 (14.0-18.0) g/dL Hct 44.8 (42-52) % MCV 90.5 (80-100) fL MCH 31.1 (25-34) pg MCHC 34.4 (32-36) g/dL RDW Std Deviation 41.2 (36.4-46.3) fL RDW Coeff of Chay 12.5 (11.5-14.5) % Plt Count 246 (130-400) K/uL MPV 9.7 (7.4-10.4) fL Immature Gran % (Auto) 0.3 % Neut % (Auto) 56.9 % Lymph % (Auto) 32.7 % [place] % (Auto) 9.1 % Eos % (Auto) 0.8 % Baso % (Auto) 0.2 % Neut # (Auto) 3.55 (1.4-6.5) K/uL Lymph # (Auto) 2.04 (1.2-3.4) K/uL [place] # (Auto) 0.57 (0.11-0.59) K/uL Eos # (Auto) 0.05 (0-0.5) K/uL Baso # (Auto) 0.01 (0-0.2) K/uL Immature Gran # (Auto) 0.02 (0.00-0.02) K/uL Sodium 138 (136-145) mmol/L Potassium 3.8 (3.5-5.1) mmol/L Chloride 102 (98-107) mmol/L Carbon Dioxide 28 (21-32) mmol/L Anion Gap 8 (3-11) BUN 9 (6-23) mg/dl Creatinine 0.75 (0.6-1.4) mg/dl Est Cr Clr Drug Dosing 136.1 ml/min Est GFR ( Amer) 132.1 ml/min Est GFR (Non-Af Amer) 113.9 ml/min BUN/Creatinine Ratio 12.0 (10-20) Glucose 108 H (70-99(Fasting)) mg/dl Calcium 9.6 (8.5-10.1) mg/dl Total Bilirubin 0.4 (0.2-1.0) mg/dl AST 52 H (13-39) U/L ALT 57 H (7-52) U/L Alkaline Phosphatase 84 (34-104) U/L Total Protein 8.1 (6.0-8.3) gm/dl Albumin 5.1 H (3.4-5.0) gm/dl Globulin 3.0 (2.5-4.0) gm/dl Albumin/Globulin Ratio 1.7 (0.9-2) TSH 5.859 H (0.300-4.500) uIu/ml Salicylates (3.0-30) mg/dl Acetaminophen (10-30) ug/ml Ethyl Alcohol mg/dL (<10.0) mg/dl SARS-CoV-2, RNA, NAAT (NEGATIVE) 05/31/21 05/31/21 05/31/21 Range/Units 17:45 17:45 18:12 WBC (4.8-10.8) K/uL RBC (4.7-6.1) M/uL Hgb (14.0-18.0) g/dL Hct (42-52) % MCV (80-100) fL MCH (25-34) pg MCHC (32-36) g/dL RDW Std Deviation (36.4-46.3) fL RDW Coeff of Chay (11.5-14.5) % Plt Count (130-400) K/uL MPV (7.4-10.4) fL Immature Gran % (Auto) % Neut % (Auto) % Lymph % (Auto) % [place] % (Auto) % Eos % (Auto) % Baso % (Auto) % Neut # (Auto) (1.4-6.5) K/uL Lymph # (Auto) (1.2-3.4) K/uL [place] # (Auto) (0.11-0.59) K/uL Eos # (Auto) (0-0.5) K/uL Baso # (Auto) (0-0.2) K/uL Immature Gran # (Auto) (0.00-0.02) K/uL Sodium (136-145) mmol/L Potassium (3.5-5.1) mmol/L Chloride (98-107) mmol/L Carbon Dioxide (21-32) mmol/L Anion Gap (3-11) BUN (6-23) mg/dl Creatinine (0.6-1.4) mg/dl Est Cr Clr Drug Dosing ml/min Est GFR ( Amer) ml/min Est GFR (Non-Af Amer) ml/min BUN/Creatinine Ratio (10-20) Glucose (70-99(Fasting)) mg/dl Calcium (8.5-10.1) mg/dl Total Bilirubin (0.2-1.0) mg/dl AST (13-39) U/L ALT (7-52) U/L Alkaline Phosphatase (34-104) U/L Total Protein (6.0-8.3) gm/dl Albumin (3.4-5.0) gm/dl Globulin (2.5-4.0) gm/dl Albumin/Globulin Ratio (0.9-2) TSH (0.300-4.500) uIu/ml Salicylates < 3.0 L (3.0-30) mg/dl Acetaminophen < 3 L (10-30) ug/ml Ethyl Alcohol mg/dL 197.7 H (<10.0) mg/dl SARS-CoV-2, RNA, NAAT NEGATIVE (NEGATIVE) Administered Medications Chlordiazepoxide HCl (Chlordiazepoxide Hcl 25 Mg Cap) 50 mg PO Q6H EDINSON; Taper Stop: 06/03/21 17:59 Last Admin: 05/31/21 23:51 Dose: 50 mg Documented by: [id number] Enoxaparin Sodium (Enoxaparin Inj 40 Mg/0.4 Ml Syr) 40 mg SQ Q24H EDINSON Stop: 06/30/21 22:59 Last Admin: 05/31/21 23:52 Dose: 40 mg Documented by: [id number] Gabapentin (Gabapentin 100 Mg Cap) 100 mg PO TID EDINSON Stop: 06/30/21 22:41 Last Admin: 05/31/21 23:52 Dose: 100 mg Documented by: [id number] Dextrose/Sodium Chloride (D5w And 1/2nss) 1,000 mls @ 100 mls/hr IV .Q10H EDINSON Stop: 06/01/21 18:41 Last Admin: 05/31/21 23:53 Dose: 100 mls/hr Documented by: [id number] Discontinued Medications Chlordiazepoxide HCl (Chlordiazepoxide Alcohol Withdrawl 50mg) 1 ea PO NOW STA; Protocol Stop: 05/31/21 18:11 Last Admin: 05/31/21 18:39 Dose: Not Given Documented by: [id number] Chlordiazepoxide HCl (Chlordiazepoxide Hcl 25 Mg Cap) 50 mg PO Q6H EDINSON; Taper Stop: 06/03/21 18:14 Last Admin: 05/31/21 18:38 Dose: 50 mg Documented by: [id number] Chlordiazepoxide HCl (Chlordiazepoxide Alcohol Withdrawl 50mg) 1 ea PO NOW STA; Protocol Stop: 05/31/21 20:48 Last Admin: 06/01/21 00:33 Dose: Not Given Documented by: [id number] Multivitamins 10 ml/ Thiamine HCl 100 mg/ Folic Acid 1 mg/Sodium Chloride 1,011.2 mls @ 500 mls/hr IV .Q2H2M ONE Stop: 05/31/21 20:11 Last Infusion: 05/31/21 21:11 Dose: 0 mls/hr Documented by: [id number] Admin: 05/31/21 18:39 Dose: 500 mls/hr Documented by: [id number] Lorazepam (Lorazepam 2 Mg/1 Ml Vial) 3 mg IV ONCE PRN; Protocol PRN Reason: EtOH Withdrawl AWSS Score >=10 Stop: 06/30/21 18:09 Last Admin: 05/31/21 18:32 Dose: 3 mg Documented by: [id number] Lorazepam (Lorazepam 2 Mg/1 Ml Vial) 1 mg IV NOW STA Stop: 05/31/21 21:11 Last Admin: 05/31/21 21:27 Dose: 1 mg Documented by: [id number] Imaging Data Radiologist's Impression: Chest X-Ray 05/31/21 19:55 XR chest 1V portable HISTORY: 41 years-old Male hypoxia acute hypoxia COMPARISON: None TECHNIQUE: AP view of the chest FINDINGS: The cardiac silhouette is upper limits of normal in size. No pneumothorax, pleural effusion, airspace consolidation or overt pulmonary edema. Bones of the chest appear grossly intact. IMPRESSION: No acute process. ACT 112: Negative or not required by law. The above report was generated using voice recognition software. It may contain grammatical, syntax or spelling errors. Electronically signed by: Chnio Gunter M.D. 05/31/2021 8:19 PM Discharge Plan Visit Data Chief Complaint: Detox Request Stated Complaint: DETOX REQUEST ED Provider: Onur Larry Discharge Problem: Alcohol withdrawal, Alcohol use disorder, severe, dependence, Alcohol abuse, Tachycardia Patient Disposition: Admitted As Inpatient Discharge Instructions Interventions: ED Discharge Assessment Last Done: 05/31/21 21:17
[2021-05-31 17:54] LABS: Basophils # (auto) 0.01 K/uL (0-0.2); Basophils % (auto) 0.2 %; Eosinophils # (auto) 0.05 K/uL (0-0.5); Eosinophils % (auto) 0.8 %; Hematocrit (blood only) 44.8 % (42-52); Hemoglobin 15.4 g/dL (14.0-18.0); Immature Granulocytes # (auto) 0.02 K/uL (0.00-0.02); Immature Granulocytes % (auto) 0.3 %; Lymphocytes # (auto) 2.04 K/uL (1.2-3.4); Lymphocytes % (auto) 32.7 %; Mean Corpuscular Hemoglobin 31.1 pg (25-34); Mean Corpuscular Hgb Conc 34.4 g/dL (32-36); Mean Corpuscular Volume 90.5 fL (80-100); Mean Platelet Volume 9.7 fL (7.4-10.4); Monocytes # (auto) 0.57 K/uL (0.11-0.59); Monocytes % (auto) 9.1 %; Neutrophils # (auto) 3.55 K/uL (1.4-6.5); Neutrophils % (auto) 56.9 %; Platelet Count 246 K/uL (130-400); RDW Coefficient of Variation 12.5 % (11.5-14.5); RDW Standard Deviation 41.2 fL (36.4-46.3); Red Blood Count 4.95 M/uL (4.7-6.1); White Blood Count 6.24 K/uL (4.8-10.8)
[2021-05-31] MEDS ORDERED: chlordiazePOXIDE ALCOHOL WITHDRAWL 50MG PO STA ×2 (18:10→20:47)
[2021-05-31] MEDS ORDERED: MULTI-VITAMIN INFUSION 10 ML, THIAMINE HCL 100 MG, FOLIC ACID 1 MG in SODIUM CHLORIDE 0... IV ONE (18:10)
[2021-05-31] MEDS ORDERED: ATIVAN IV ALCOHOL WITHDRAWL IV PRN ×2 (18:10→22:42)
[2021-05-31] MEDS ORDERED: LORazepam 2 MG/1 ML VIAL IV PRN ×5 (18:10→22:42)
[2021-05-31 18:12] LABS: Acetaminophen < 3 ug/ml (10-30); Albumin Globulin Ratio 1.7 (0.9-2); Albumin Level 5.1 gm/dl (3.4-5.0); Bilirubin,Total 0.4 mg/dl (0.2-1.0); Calcium 9.6 mg/dl (8.5-10.1); Creatinine Clr Calc Pharmacy 136.1 ml/min; Est GFR (African American) 132.1 ml/min; Est GFR (Non-African American) 113.9 ml/min; Potassium 3.8 mmol/L (3.5-5.1); Salicylate < 3.0 mg/dl (3.0-30); Total Protein 8.1 gm/dl (6.0-8.3)
[2021-05-31] MEDS ORDERED: chlordiazePOXIDE HCl 25 MG CAP PO SCH (18:15)
--- NOTE | 2021-05-31 20:20 | XRay Report ---
XR chest 1V portable HISTORY: 41 years-old Male hypoxia acute hypoxia COMPARISON: None TECHNIQUE: AP view of the chest FINDINGS: The cardiac silhouette is upper limits of normal in size. No pneumothorax, pleural effusion, airspace consolidation or overt pulmonary edema. Bones of the chest appear grossly intact. IMPRESSION: No acute process. ACT 112: Negative or not required by law. The above report was generated using voice recognition software. It may contain grammatical, syntax o r spelling errors. Electronically signed by: Chino Gunter M.D. 05/31/2021 8:19 PM
[2021-05-31] MEDS ORDERED: LORazepam 2 MG/1 ML VIAL IV STA (21:10)
--- NOTE | 2021-05-31 22:15 | History and Physical Report ---
DATE OF ADMISSION: 05/31/2021. CHIEF COMPLAINT: Detox request. HISTORY OF PRESENT ILLNESS: This is a 41-year-old male with past medical history significant for history of opiate dependence, in remission, on Suboxone, alcoholism, generalized anxiety disorder, major depression, presents with detox request. The patient was recently in the hospital with alcohol withdrawal and was also seen by Psychiatry and discharged home when the patient declined inpatient rehab at that time. Comes again with alcoholism. 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 He states drinking 4-6 beers every day and also on medical marijuana and also he is on Suboxone. The patient says now he wants to get detoxed from alcoholism and also from Suboxone. He says he is taking Suboxone since 2012. The patient, after Ativan, is somewhat hypoxic and requiring oxygen. His blood pressure is okay now, he is resting comfortably. Denies any headache or dizziness. No blurred visions, no earache. Has some runny nose from his allergies. No sore throat. No cough, no fever, no chills. Appetite is okay. No nausea, no vomiting. Has some fullness in the abdomen. Denies any diarrhea or constipation. Normal micturition. No swelling in the legs. Ambulating okay. Lives with his father. ALLERGIES: KEFLEX. PAST MEDICAL HISTORY: As mentioned above. PAST SURGICAL HISTORY: Left hip arthroscopy. MEDICATIONS: The patient is currently on Suboxone 8/2 mg sublingual, hydroxyzine 25 mg p.o. q.8 hours p.r.n., thiamine 100 mg p.o. daily, folic acid 1mg p.o. daily, Zoloft 200 mg p.o. daily, FAMILY HISTORY: Significant for son has ADHD; maternal grandmother with Alzheimer's disease; father has diabetes, hypertension, kidney cancer, status post nephrectomy, obesity; mother has osteoporosis; maternal grandfather had stroke. SOCIAL HISTORY: Lives with his father. No smoking. Gets medical marijuana, ongoing alcohol abuse. REVIEW OF SYSTEMS: As per HPI. Rest of the review of systems is negative. PHYSICAL EXAMINATION: GENERAL: The patient is of moderate built, not in acute distress. VITAL SIGNS: Temperature 36.2, pulse 104, respiratory rate 16, blood pressure 120/80, oxygen 94% on oxygen. HEENT: Pupils equal, round and reactive to light. Oral mucosa moist. NECK: No JVD. No neck masses. CARDIOVASCULAR: S1 and S2 heard. Regular rate and rhythm. No murmur, no gallop. RESPIRATORY SYSTEM: Normal AP diameter. No accessory muscle use. No wheezing, no crackles. ABDOMEN: Soft, bowel sounds present, nontender, no distention. CENTRAL NERVOUS SYSTEM: Alert and oriented. Speech is clear. No facial droop. Moves extremities. EXTREMITIES: No edema, no erythema. LABORATORY DATA: WBC 6.2, hemoglobin 15.4, hematocrit 44.8, platelets 246. Sodium 138, potassium 3.8, chloride 102, bicarbonate 28, BUN 9, creatinine 0.7, serum glucose 108, calcium 9.6, total bilirubin 0.4, AST 52, ALT 57, alkaline phosphatase 84. TSH is 5.8. Salicylate less than 3, acetaminophen less than 3, ethyl alcohol 197. SARS-CoV-2 negative. IMAGING: Chest x-ray, no acute process. ASSESSMENT AND PLAN: This is a 41-year-old male who presents with recurrent alcoholism and alcohol withdrawal. 1. Alcoholism, alcohol withdrawal: The patient is also requesting detoxification from Suboxone. We will do alcohol withdrawal protocol with Librium and Ativan p.r.n. and clonidine p.r.n. Received a banana bag in the Emergency Room. We will continue his home thiamine and folic acid. Monitor in the telemetry floor. 2. Major depression and generalized anxiety disorder: We will continue to use his Zoloft. We will consult psychiatry to help with the medications. 3. Deep venous thrombosis prophylaxis: Lovenox subcutaneously. DISPOSITION: Closely monitor in tele floor. Level 1, full code. Expect to discharge home and follow with family doctor. Job ID: [id number] [email or web address]
[2021-05-31] MEDS ORDERED: ONDANSETRON INJ 2 MG/ML 2 ML VIAL IV PRN (22:42)
[2021-05-31] MEDS ORDERED: cloNIDine HCL 0.1 MG TAB PO PRN (22:42)
[2021-05-31] MEDS ORDERED: NITROGLYCERIN SL 0.4 MG/TAB TAB SL PRN (22:42)
[2021-05-31] MEDS: chlordiazePOXIDE HCl 25 MG CAP PO SCH (23:51)
[2021-05-31] MEDS: ENOXAPARIN INJ 40 MG/0.4 ML SYR SQ SCH (23:52)
[2021-05-31] MEDS: GABAPENTIN 100 MG CAP PO SCH (23:52)
[2021-05-31] MEDS: D5W AND 1/2NSS 1,000 ML IV SCH (23:53)
[2021-06-01 03:44] LABS: Appearance Urine Clear (Clear); Bilirubin Urine Negative (Negative); Blood Urine Negative (Negative); Color Urine Yellow; Glucose Urine UA Negative (Negative); Ketones Urine Negative (Negative); Leukocyte Esterase Urine Negative (Negative); Nitrite Urine Negative (Negative); Protein Urine Negative (Negative); Specific Gravity Urine 1.015 (1.000-1.030); Urobilinogen Urine Negative (Negative); pH Urine 5.5 (4.5-7.5)
[2021-06-01 04:34] LABS: Amphetamines+Metham, Urine Neg (Neg); Barbiturates, Urine Neg (Neg); Benzodiazepine, Urine Pos (Neg); Cocaine, Urine Neg (Neg); MDMA (Ecstacy), Urine Pos (Neg); Methadone, Urine Neg (Neg); Opiate, Urine Neg (Neg); Phencyclidine, Urine Neg (Neg)
[2021-06-01] MEDS: chlordiazePOXIDE HCl 25 MG CAP PO SCH ×3 (05:19→18:31)
[2021-06-01] MEDS: THIAMINE HCL 100 MG TAB PO SCH (08:38)
[2021-06-01] MEDS: GABAPENTIN 100 MG CAP PO SCH ×3 (08:38→19:33)
[2021-06-01] MEDS: FOLIC ACID 1 MG TAB PO SCH (08:38)
[2021-06-01] MEDS: SERTRALINE HCL 100 MG TABLET PO SCH (08:38)
[2021-06-01] MEDS: D5W AND 1/2NSS 1,000 ML IV SCH (09:30)
[2021-06-01] MEDS: LORazepam 2 MG/1 ML VIAL IV PRN ×2 (09:56→19:33)
--- NOTE | 2021-06-01 12:39 | Hospitalist Progress Note ---
Date of Service June 01, 2021 Assessment & Plan (1) Alcohol abuse: (2) Alcohol withdrawal: (3) Anxiety disorder, unspecified: Plan: Continue alcohol withdrawal protocol Spent at least 35 minutes counseling patient regarding alcohol withdrawal, provided resources, discussed rehab options - inpatient and outpt, discussed how to deal with factors that trigger/perpetuate his abuse He asked about stopping suboxone. I explained that this is usually done over time. I recommended it will be better to focus on alcohol dependence management for now and getting off suboxone can be done in the future. He agreed with plan. Suboxone resumed Patient's UDS was +for MDMA and marijuana. He acknowledged marijuana use but denied MDMA use Continue thiamine, folate Continue sertraline Psychiatric evaluation appreciated DVT prophylaxis-Lovenox subcu Admission and Anticipated Discharge Date Admission Date: May 31, 2021 Subjective Reports anxiety, tremors. Denies any visual, auditory or tactile hallucinations Denies palpitations, chest pain, shortness of breath Denies headache, dizziness Denies nausea, vomiting, abdominal pain, diarrhea, constipation Denies dysuria, frequency, urgency Physical Exam Constitutional: + well hydrated; no acute distress Eyes: PERRL, conjunctivae normal, anicteric sclerae ENMT: external ear and nose normal, oropharynx normal Respiratory: normal respiratory effort, lungs clear to auscultation Cardiovascular: RRR, no murmur, no edema Gastrointestinal (Abdomen): normal bowel sounds, soft, nontender, no hepatosplenomegaly Neurologic: PERRL, EOMI, accommodation nl, no face palsy, no dysarthria +tremors Psychiatric: AOx3 anxious affect Results & Data Results & Data ([facility]) Vital Signs (Past 12 Hours) Vital Signs Temp Pulse Pulse Resp BP Pulse Ox 06/01/21 11:32 36.5 C 74 18 126/84 96 06/01/21 09:38 36.9 C 101 H 20 147/85 H 95 06/01/21 07:12 81 06/01/21 06:44 36.5 C 81 18 113/67 95 06/01/21 03:23 36.5 C 95 H 18 120/83 97 06/01/21 01:49 103 H Laboratory Results Abnormal lab results 05/31/21 05/31/21 05/31/21 Range/Units 17:45 17:45 17:45 Glucose 108 H (70-99(Fasting)) mg/dl AST 52 H (13-39) U/L ALT 57 H (7-52) U/L Albumin 5.1 H (3.4-5.0) gm/dl TSH 5.859 H (0.300-4.500) uIu/ml Salicylates < 3.0 L (3.0-30) mg/dl Acetaminophen < 3 L (10-30) ug/ml MDMA (Ecstasy) Screen (Neg) U Benzodiazepines Scrn (Neg) U Marijuana (THC) Screen (Neg) Ethyl Alcohol mg/dL (<10.0) mg/dl 05/31/21 06/01/21 Range/Units 17:45 03:30 Glucose (70-99(Fasting)) mg/dl AST (13-39) U/L ALT (7-52) U/L Albumin (3.4-5.0) gm/dl TSH (0.300-4.500) uIu/ml Salicylates (3.0-30) mg/dl Acetaminophen (10-30) ug/ml MDMA (Ecstasy) Screen Pos H (Neg) U Benzodiazepines Scrn Pos H (Neg) U Marijuana (THC) Screen Pos H (Neg) Ethyl Alcohol mg/dL 197.7 H (<10.0) mg/dl (1) Alcohol withdrawal Complication of substance-induced condition: uncomplicated Qualified Code(s): F10.230 - Alcohol dependence with withdrawal, uncomplicated
[2021-06-01] MEDS: BUPRENORPHINE/NALOXONE 8/2 MG TAB SL SCH (13:26)
--- NOTE | 2021-06-01 13:58 | Psychiatric Consultation ---
Date of Consultation June 01, 2021 Impression / Recommendations Impression 41 yo male currently admittedly medically for management of ETOH withdrawal. (1) Alcohol use disorder, severe, dependence: (2) Anxiety disorder, unspecified: reviewed that Suboxone taper is generally completed on an outpatient basis over a period of weeks/months or within a structured rehab facility. Defer to hospitalist on willingness to initiate here given active management ETOH withdrawal. In cases where forced d/c of suboxone or in preparation for incarceration have used clonidine protocol with lomotil/etc. liaison to confirm aftercare appointments no additional recs at this time Psych History Identifying Data 41 yo male from [place], admit 05/31/21 for ETOH withdrawal. Alcohol is by Dr. Wan for depression, alcoholism. Chief Complaint "I want off Suboxone" History of Present Illness Bautista has been seen by consultation service on multiple occasions, often with more complicated withdrawal symptoms like behavioral agitation and hallucinations/confusion. Today he is alert and cooperative with bilateral hand tremor. He continues to state he does not want to go to an inpatient rehab settings but confirms he did follow through with the providers he was referred to following his Apr 2021 stay. He states his relapse was not as severe this time and he denies any concerns or compliance issues with his Zoloft. He remains focus on the plan for Suboxone. Past Psychiatric History Previous Psych History: See 05/09/21 consultation. Allergies Allergy/AdvReac Type Severity Reaction Status Date / Time cephalexin [From Keflex] Allergy Hives Verified 05/31/21 18:54 Home Medications Medication Instructions Recorded Confirmed Type buprenorphine 8 mg-naloxone 2 mg 1 film SUBLINGUAL DAILY 04/10/21 05/31/21 History sublingual film (Suboxone) folic acid 1 mg tablet 1 mg PO DAILY #30 tab 05/12/21 05/31/21 Rx hydroxyzine HCl 25 mg tablet 25 mg PO Q8H PRN #15 tab 05/12/21 05/31/21 Rx thiamine HCl (vitamin B1) 100 mg 100 mg PO DAILY #30 tab 05/12/21 05/31/21 Rx tablet gabapentin 100 mg capsule 100 mg PO TID 05/31/21 05/31/21 History hydroxyzine HCl 10 mg tablet 10 mg PO TID 05/31/21 05/31/21 History hydroxyzine pamoate 50 mg capsule 50 mg PO Q8 PRN 05/31/21 05/31/21 History sertraline 100 mg tablet 200 mg PO DAILY 05/31/21 05/31/21 History Personal History Beliefs That Will Affect Care: None Patient History Medical History Alcohol abuse Alcohol use disorder, moderate, dependence Anxiety disorder, unspecified MDD (major depressive disorder), recurrent episode, mild Opiate addiction Opioid use disorder, moderate, in sustained remission, on maintenance therapy Social History Smoking Status: Never smoker Hx Alcohol Use: Yes Alcohol type: beer Hx Substance Use: No Preferred Language: Vietnamese Communication Ability: Effective Manager [employer] Required: No Beliefs That Will Affect Care: None marital status: Single Current Living Situation: Family Other Information That Helps Us Care for You: No Feels Safe at Home: Yes Safety Concerns: Feels Safe At This Time Assistive Devices: None Physical Exam Psychiatric: Orientation: alert and oriented x 3 Apperance: appropriately dressed and appropriately groomed Eye Contact: good eye contact Speech: normal rate/rhythm/volume of speech Affect: euthymic affect Mood: + anxious mood Thought Process: goal directed thought process Thought Content: reality based without delusions Suicidal Thoughts: denies suicidal thoughts Homicidal Thoughts: denies homicidal thoughts Hallucinations: no auditory hallucinations and no visual hallucinations Cognition: attention grossly intact and language grossly intact Estimated Intelligence: consistent with education level Insight: + limited insight Judgement: + limited judgement Vital Signs (Past 24 Hours): Last Vital Signs Temp 36.5 C 06/01/21 11:32 Pulse 74 06/01/21 11:32 Resp 18 06/01/21 11:32 BP 126/84 06/01/21 11:32 Pulse Ox 96 06/01/21 11:32 Review of Systems All systems reviewed & are unremarkable except as noted in HPI & below Results & Data ([facility]) Medications Administered Buprenorphine/Naloxone (Buprenorphine/Naloxone 8/2 Mg Tab) 1 tab SL DAILY EDINSON Stop: 07/01/21 13:14 Last Admin: 06/01/21 13:26 Dose: 1 tab Documented by: [id number] Chlordiazepoxide HCl (Chlordiazepoxide Hcl 25 Mg Cap) 50 mg PO Q6H EDINSON; Taper Stop: 06/03/21 17:59 Last Admin: 06/01/21 12:09 Dose: 50 mg Documented by: [id number] Admin: 06/01/21 05:19 Dose: 50 mg Documented by: [id number] Admin: 05/31/21 23:51 Dose: 50 mg Documented by: [id number] Enoxaparin Sodium (Enoxaparin Inj 40 Mg/0.4 Ml Syr) 40 mg SQ Q24H EDINSON Stop: 06/30/21 22:59 Last Admin: 05/31/21 23:52 Dose: 40 mg Documented by: [id number] Folic Acid (Folic Acid 1 Mg Tab) 1 mg PO DAILY EDINSON Stop: 07/01/21 08:59 Last Admin: 06/01/21 08:38 Dose: 1 mg Documented by: [id number] Gabapentin (Gabapentin 100 Mg Cap) 100 mg PO TID EDINSON Stop: 06/30/21 22:41 Last Admin: 06/01/21 13:26 Dose: 100 mg Documented by: [id number] Admin: 06/01/21 08:38 Dose: 100 mg Documented by: [id number] Admin: 05/31/21 23:52 Dose: 100 mg Documented by: [id number] Dextrose/Sodium Chloride (D5w And 1/2nss) 1,000 mls @ 100 mls/hr IV .Q10H EDINSON Stop: 06/01/21 18:41 Last Admin: 06/01/21 09:30 Dose: 100 mls/hr Documented by: [id number] Infusion: 06/01/21 09:30 Dose: 100 mls/hr Documented by: [id number] Admin: 05/31/21 23:53 Dose: 100 mls/hr Documented by: [id number] Lorazepam (Lorazepam 2 Mg/1 Ml Vial) 1 mg IV UD PRN; Protocol PRN Reason: EtOH Withdrawl AWSS Score 6,7 Stop: 06/30/21 22:41 Last Admin: 06/01/21 09:56 Dose: 1 mg Documented by: [id number] Sertraline HCl (Sertraline Hcl 100 Mg Tablet) 200 mg PO DAILY EDINSON Stop: 07/01/21 08:59 Last Admin: 06/01/21 08:38 Dose: 200 mg Documented by: [id number] Thiamine HCl (Thiamine Hcl 100 Mg Tab) 100 mg PO DAILY EDINSON Stop: 07/01/21 08:59 Last Admin: 06/01/21 08:38 Dose: 100 mg Documented by: [id number] Coding Level of Care Code 95979 [facility] Int[facility] Hosp Care Lvl 1 Diagnoses Alcohol use disorder, severe, dependence F10.20 Anxiety disorder, unspecified F41.9
[2021-06-01] MEDS: ENOXAPARIN INJ 40 MG/0.4 ML SYR SQ SCH (23:02)
[2021-06-02] MEDS: chlordiazePOXIDE HCl 25 MG CAP PO SCH ×4 (02:19→17:54)
[2021-06-02 06:12] LABS: Hematocrit (blood only) 38.1 % (42-52); Hemoglobin 13.1 g/dL (14.0-18.0); Mean Corpuscular Hemoglobin 31.1 pg (25-34); Mean Corpuscular Hgb Conc 34.4 g/dL (32-36); Mean Corpuscular Volume 90.5 fL (80-100); Platelet Count 181 K/uL (130-400); RDW Coefficient of Variation 12.3 % (11.5-14.5); Red Blood Count 4.21 M/uL (4.7-6.1); White Blood Count 4.48 K/uL (4.8-10.8)
[2021-06-02 06:59] LABS: Albumin Globulin Ratio 1.8 (0.9-2); BUN Creatinine Ratio 20.8 (10-20); Bilirubin,Total 0.7 mg/dl (0.2-1.0); Calcium 8.7 mg/dl (8.5-10.1); Creatinine Clr Calc Pharmacy 141.6 ml/min; Est GFR (African American) 134.3 ml/min; Est GFR (Non-African American) 115.9 ml/min; Globulin 2.2 gm/dl (2.5-4.0); Phosphorus 3.4 mg/dl (2.5-4.9); Potassium 3.4 mmol/L (3.5-5.1); Total Protein 6.2 gm/dl (6.0-8.3)
[2021-06-02] MEDS: FOLIC ACID 1 MG TAB PO SCH (07:31)
[2021-06-02] MEDS: THIAMINE HCL 100 MG TAB PO SCH (07:32)
[2021-06-02] MEDS: SERTRALINE HCL 100 MG TABLET PO SCH (07:32)
[2021-06-02] MEDS: GABAPENTIN 100 MG CAP PO SCH ×3 (07:33→21:04)
[2021-06-02] MEDS ORDERED: POTASSIUM CHLORIDE CRTAB 20 MEQ TABCR PO STA (08:12)
[2021-06-02] MEDS: BUPRENORPHINE/NALOXONE 8/2 MG TAB SL SCH (09:09)
[2021-06-02] MEDS: LORazepam 2 MG/1 ML VIAL IV PRN ×2 (13:00→21:14)
--- NOTE | 2021-06-02 14:46 | Hospitalist Progress Note ---
Date of Service June 02, 2021 Assessment & Plan (1) Alcohol abuse: (2) Alcohol withdrawal: (3) Anxiety disorder, unspecified: Plan: Continue alcohol withdrawal protocol Continue librium taper Continue thiamine, folate Continue sertraline Psychiatric evaluation appreciated Provided some counselling DVT prophylaxis-Lovenox subcu Admission and Anticipated Discharge Date Admission Date: May 31, 2021 Subjective Patient seen and examined Reports anxiety, tremors. Patient reports anxiety worsened today because he just got a call about termination from his job Denies any visual, auditory or tactile hallucinations Denies palpitations, chest pain, shortness of breath Denies headache, dizziness Denies nausea, vomiting, abdominal pain, diarrhea, constipation Denies dysuria, frequency, urgency Physical Exam Constitutional: + well hydrated; no acute distress Eyes: PERRL, conjunctivae normal, anicteric sclerae ENMT: external ear and nose normal, oropharynx normal Respiratory: normal respiratory effort, lungs clear to auscultation Cardiovascular: RRR, no murmur, no edema Gastrointestinal (Abdomen): normal bowel sounds, soft, nontender, no hepatosplenomegaly Neurologic: PERRL, EOMI, accommodation nl, no face palsy, no dysarthria Tremulous Psychiatric: Anxious affect Results & Data Results & Data ([facility]) Vital Signs (Past 12 Hours) Vital Signs Temp Pulse Pulse Resp BP Pulse Ox Pulse Ox 06/02/21 12:06 36.8 C 81 18 120/74 96 06/02/21 08:26 36.7 C 76 18 119/78 94 06/02/21 08:00 75 94 06/02/21 05:39 36.8 C 67 17 135/80 98 Laboratory Results Abnormal lab results 06/02/21 06/02/21 Range/Units 05:43 05:43 WBC 4.48 L (4.8-10.8) K/uL RBC 4.21 L (4.7-6.1) M/uL Hgb 13.1 L (14.0-18.0) g/dL Hct 38.1 L (42-52) % Potassium 3.4 L (3.5-5.1) mmol/L BUN/Creatinine Ratio 20.8 H (10-20) Globulin 2.2 L (2.5-4.0) gm/dl (1) Alcohol withdrawal Complication of substance-induced condition: uncomplicated Qualified Code(s): F10.230 - Alcohol dependence with withdrawal, uncomplicated
[2021-06-02] MEDS: ENOXAPARIN INJ 40 MG/0.4 ML SYR SQ SCH (23:16)
[2021-06-03] MEDS: chlordiazePOXIDE HCl 25 MG CAP PO SCH ×2 (03:24→09:18)
[2021-06-03 05:54] LABS: Hematocrit (blood only) 39.1 % (42-52); Hemoglobin 13.9 g/dL (14.0-18.0); Mean Corpuscular Hgb Conc 35.5 g/dL (32-36); Mean Corpuscular Volume 90.1 fL (80-100); Mean Platelet Volume 9.3 fL (7.4-10.4); Platelet Count 202 K/uL (130-400); RDW Coefficient of Variation 12.1 % (11.5-14.5); RDW Standard Deviation 40.2 fL (36.4-46.3); Red Blood Count 4.34 M/uL (4.7-6.1); White Blood Count 5.02 K/uL (4.8-10.8)
[2021-06-03 06:27] LABS: Magnesium 2.1 mg/dl (1.7-2.4); Phosphorus 3.8 mg/dl (2.5-4.9)
[2021-06-03] MEDS: FOLIC ACID 1 MG TAB PO SCH (08:14)
[2021-06-03] MEDS: SERTRALINE HCL 100 MG TABLET PO SCH (08:15)
[2021-06-03] MEDS: GABAPENTIN 100 MG CAP PO SCH ×3 (08:15→21:27)
[2021-06-03] MEDS: THIAMINE HCL 100 MG TAB PO SCH (08:16)
[2021-06-03] MEDS: BUPRENORPHINE/NALOXONE 8/2 MG TAB SL SCH (08:48)
[2021-06-03 10:04] LABS: BUN Creatinine Ratio 20.8 (10-20); Calcium 9.3 mg/dl (8.5-10.1); Creatinine Clr Calc Pharmacy 141.8 ml/min; Est GFR (African American) 134.3 ml/min; Est GFR (Non-African American) 115.9 ml/min; Potassium 3.7 mmol/L (3.5-5.1)
--- NOTE | 2021-06-03 12:05 | Hospitalist Progress Note ---
Date of Service June 03, 2021 Assessment & Plan (1) Alcohol abuse: (2) Alcohol withdrawal: (3) Anxiety disorder, unspecified: Plan: Continue alcohol withdrawal protocol Continue librium taper Continue thiamine, folate Continue sertraline Psychiatric evaluation appreciated DVT prophylaxis-Lovenox subcu Admission and Anticipated Discharge Date Admission Date: May 31, 2021 Subjective Patient seen and examined Reports anxiety Reports tremors improved Denies any visual, auditory or tactile hallucinations Denies palpitations, chest pain, shortness of breath Denies headache, dizziness Denies nausea, vomiting, abdominal pain, diarrhea, constipation Denies dysuria, frequency, urgency Physical Exam Constitutional: + well hydrated; no acute distress Eyes: PERRL, conjunctivae normal, anicteric sclerae ENMT: external ear and nose normal, oropharynx normal Respiratory: normal respiratory effort, lungs clear to auscultation Cardiovascular: RRR, no murmur, no edema Gastrointestinal (Abdomen): normal bowel sounds, soft, nontender, no hepatosplenomegaly Musculoskeletal: no cyanosis or clubbing, extremities motor strength 5/5 Neurologic: PERRL, EOMI, accommodation nl, no face palsy, no dysarthria Mild tremors outstretched hands Results & Data Results & Data ([facility]) Vital Signs (Past 12 Hours) Vital Signs Temp Pulse Pulse Resp BP Pulse Ox 06/03/21 11:21 36.8 C 73 20 138/78 94 06/03/21 07:58 58 L 06/03/21 07:27 36.4 C L 65 17 123/80 91 06/03/21 03:32 36.5 C 67 18 115/79 94 Laboratory Results Abnormal lab results 06/03/21 06/03/21 Range/Units 05:28 05:29 RBC 4.34 L (4.7-6.1) M/uL Hgb 13.9 L (14.0-18.0) g/dL Hct 39.1 L (42-52) % Sodium 135 L (136-145) mmol/L BUN/Creatinine Ratio 20.8 H (10-20) (1) Alcohol withdrawal Complication of substance-induced condition: uncomplicated Qualified Code(s): F10.230 - Alcohol dependence with withdrawal, uncomplicated
[2021-06-03] MEDS ORDERED: hydrOXYzine HCl 25 MG TAB PO PRN (13:45)
[2021-06-03] MEDS: LORazepam 2 MG/1 ML VIAL IV PRN (19:47)
[2021-06-03] MEDS: ENOXAPARIN INJ 40 MG/0.4 ML SYR SQ SCH (23:12)
[2021-06-04 06:41] LABS: BUN Creatinine Ratio 24.6 (10-20); Calcium 9.2 mg/dl (8.5-10.1); Creatinine Clr Calc Pharmacy 148.1 ml/min; Est GFR (African American) 136.7 ml/min; Est GFR (Non-African American) 117.9 ml/min; Potassium 3.7 mmol/L (3.5-5.1)
[2021-06-04] MEDS: BUPRENORPHINE/NALOXONE 8/2 MG TAB SL SCH (08:15)
[2021-06-04] MEDS: FOLIC ACID 1 MG TAB PO SCH (08:15)
[2021-06-04] MEDS: SERTRALINE HCL 100 MG TABLET PO SCH (08:16)
[2021-06-04] MEDS: THIAMINE HCL 100 MG TAB PO SCH (08:16)
[2021-06-04] MEDS: GABAPENTIN 100 MG CAP PO SCH ×2 (08:16→13:23)
[2021-06-04] MEDS ORDERED: hydrOXYzine HCl 25 MG TAB PO PRN (11:04)
--- NOTE | 2021-06-04 11:15 | Discharge Summary ---
Date of Service June 04, 2021 Admission HPI Per Admitting Provider This is a 41-year-old male with past medical history significant for history of opiate dependence, in remission, on Suboxone, alcoholism, generalized anxiety disorder, major depression, presents with detox request. The patient was recently in the hospital with alcohol withdrawal and was also seen by Psychiatry and discharged home when the patient declined inpatient rehab at that time. Comes again with alcoholism. The patient says for 1 week, he did fine, but since last Saturday, he had an appointment constitution party about his job and he was anxious whether he will keep his job or not, then he started drinking again. He states drinking 4-6 beers every day and also on medical marijuana and also he is on Suboxone. The patient says now he wants to get detoxed from alcoholism and also from Suboxone. He says he is taking Suboxone since 2012. The patient, after Ativan, is somewhat hypoxic and requiring oxygen. His blood pressure is okay now, he is resting comfortably. Denies any headache or dizziness. No blurred visions, no earache. Has some runny nose from his allergies. No sore throat. No cough, no fever, no chills. Appetite is okay. No nausea, no vomiting. Has some fullness in the abdomen. Denies any diarrhea or constipation. Normal micturition. No swelling in the legs. Ambulating okay. Lives with his father. Admission Exam Per Admitting Provider This is a 41-year-old male with past medical history significant for history of opiate dependence, in remission, on Suboxone, alcoholism, generalized anxiety disorder, major depression, presents with detox request. The patient was recently in the hospital with alcohol withdrawal and was also seen by Psychiatry and discharged home when the patient declined inpatient rehab at that time. Comes again with alcoholism. The patient says for 1 week, he did fine, but since last Saturday, he had an appointment constitution party about his job and he was anxious whether he will keep his job or not, then he started drinking again. He states drinking 4-6 beers every day and also on medical marijuana and also he is on Suboxone. The patient says now he wants to get detoxed from alcoholism and also from Suboxone. He says he is taking Suboxone since 2012. The patient, after Ativan, is somewhat hypoxic and requiring oxygen. His blood pressure is okay now, he is resting comfortably. Denies any headache or dizziness. No blurred visions, no earache. Has some runny nose from his allergies. No sore throat. No cough, no fever, no chills. Appetite is okay. No nausea, no vomiting. Has some fullness in the abdomen. Denies any diarrhea or constipation. Normal micturition. No swelling in the legs. Ambulating okay. Lives with his father. Principal Diagnosis Alcohol withdrawal Anxiety Discharge Exam Constitutional + well hydrated; no acute distress Eyes PERRL, conjunctivae normal, anicteric sclerae ENMT external ear and nose normal, oropharynx normal Respiratory normal respiratory effort, lungs clear to auscultation Cardiovascular RRR, no murmur, no edema Gastrointestinal (Abdomen) normal bowel sounds, soft, nontender, no hepatosplenomegaly Musculoskeletal no cyanosis or clubbing, extremities motor strength 5/5 Neurologic PERRL, EOMI, accommodation nl, no face palsy, no dysarthria Psychiatric A+Ox3, euthymic affect Discharge Data Allergies Allergy/AdvReac Type Severity Reaction Status Date / Time cephalexin [From Keflex] Allergy Hives Verified 05/31/21 18:54 Consultations 05/31/21 20:08 ED Decision to Admit Stat 06/01/21 08:00 Consult Psychiatry Routine Hospital Course (1) Alcohol abuse: (2) Alcohol withdrawal: (3) Anxiety disorder, unspecified: Alcohol level was 197mg/dl on admission Was managed with alcohol withdrawal protocol with ativan and librium taper Counselled patient against alcohol use Patient declined inpatient alcohol rehab Provided rehab resources Continue thiamine, folate Continue sertraline Advised to follow up with his psychiatrist Total Time Total Time Spent Total Time Spent (In Minutes): 40 Total Time Includes: Examination of the Patient, Discharge Planning and Medicati on Reconciliation Discharge Plan Discharge Items Patient Disposition: Home - Self-Care Reason For Visit: DETOX REQUEST Discharge Diagnosis: Alcohol withdrawal Anxiety Activity: Resume your previous activity Non-emergency contact: Primary Care Provider and Psychiatrist Call non-emergency contact if: you have any medication questions Follow-up/Referrals: Bruna Lemus DO [Primary Care Provider] - Diet: Regular Addtl Attending Provider Instructions: Mr Oakley. You came to the hospital for detox from alcohol. You were managed for alcohol withdrawal. It is extremely important that you stop all alcohol and utilize the alcohol rehab resources provided. Please ensure follow up with your Psychiatrist and continue your medications as provided. It was a pleasure taking care of you. Pending Studies at Discharge: No Stand-Alone Forms: [facility], Smoking Cessation Medications and DC Order Prescriptions: Continued buprenorphine-naloxone [Suboxone] 8-2 mg Film 1 film SUBLINGUAL DAILY RF: 0 sertraline 100 mg tablet 200 mg PO DAILY RF: 0 gabapentin 100 mg capsule 100 mg PO TID RF: 0 hydroxyzine HCl 10 mg tablet 10 mg PO TID RF: 0 hydroxyzine pamoate 50 mg capsule 50 mg PO Q8 PRN (Reason: Anxiety) RF: 0 thiamine HCl (vitamin B1) 100 mg tablet 100 mg PO DAILY Qty: 30 RF: 0 folic acid 1 mg tablet 1 mg PO DAILY Qty: 30 RF: 0 Discontinued hydroxyzine HCl 25 mg Tablet 25 mg PO Q8H PRN (Reason: anxiety) Qty: 15 RF: 0 Discharge Orders: Discharge Order (Routine); Ordered 06/04/21 Ordered By: Lashawn Thompson/Other Patient Handouts: Alcohol Addiction, Alcoholism: Myths and Facts Admission Data Admit Date/Time: 05/31/21 20:47 Attending Provider: Lashawn Maya I. Admit Provider: Shailesh Wan Primary Care Provider: Bruna Lemus Other Providers: Shailesh Wan ; Prudence Perez ; Yudy Braga ; Paula Ge Other Interventions: Discharge Summary Assessment (RN) Last Done: 06/04/21 13:37
[2021-06-05 08:43] LABS: 7-Aminoclonaz, Confirm NEGATIVE ng/mL (<25); Hydro-Alp Ur, GC/MS NEGATIVE ng/mL (<25); Hydroxyethylflurazepam, Conf NEGATIVE ng/mL (<50); Hydroxymidazolam Ur, GC/MS NEGATIVE ng/mL (<50); Hydroxytriazolam NEGATIVE ng/mL (<50); Lorazepam, Ur GC/MS 1260 ng/mL (<50); MDA negative; MDEA negative; MDMA (Ecstasy) Urine, Confirm negative; Marijuana Quant, GCMS Urine 92 ng/mL (<5); Nordiazepam, Confirm NEGATIVE ng/mL (<50); Oxazepam Ur, GC/MS 68 ng/mL (<50); Temazepam, Confirm NEGATIVE ng/mL (<50)
== END 2021-06-04 13:54 | disposition home or self-care (01) | DRG 897 ==
LOC: ED 16:48 → 2S 20:47